=== PATIENT | female | born 1985 | race Caucasian/White ===

== ENCOUNTER 2019-09-06 13:32 | Emergency (ER) | payer SELFPAY | END 2019-09-06 17:51 | disposition left against medical advice (07) | PROVIDERS: Emergency Provider Emergency Medicine | DX: R07.89 Other chest pain (principal); Z53.21 Procedure and treatment not carried out due to patient leaving prior to being seen by health care provider | CPT/HCPCS: 99281 ==

== ENCOUNTER 2019-09-06 20:55 | Emergency (ER) | payer SELFPAY ==
[2019-09-06 21:14] VITALS: BP 147/93; PULSE 92; RESP 16; TEMP 36.4; O2SAT 99; BMI 27.3
--- NOTE | 2019-09-06 21:18 | ED_ITS ---
Entered by Lisa Spring, acting as scribe for Isabelle Gaytan HPI - Chest Pain General: Chief Complaint: Chest Pain Stated Complaint: HEART PROBLEMS Time Seen by Provider: 09/06/19 21:18 Source: patient and RN notes reviewed Mode of arrival: ambulatory Limitations: no limitations History of Present Illness: HPI narrative: 34 yo female presents to ED with co mplaints of sharp cramps in the L side of her chest. She said they have been intermittent since Thursday night (09.04.2019). She said the pain is made worse by movement, deep breaths and the pain is reproducible. MD complaint: chest pain Pertinent past history: other (none) Onset (ago): day(s) (2) Timing of current episode: episodic Prior episodes: No Onset: during exertion Pain location: substernal Pain radiation: left arm (with movement) Severity: moderate Quality: sharp Relieving factors: nothing Exacerbating factors: exertion, inspiration and movement Associated symptoms: Reports no associated symptoms; Deny abdominal pain, diaphoresis, fever(s), nausea, palpitations, syncope or vomiting Treatment prior to arrival: none Risk Factors: Coronary artery disease risk factors: none Thoracic aortic dissection risk factors: none Review of Systems General: Reports: other (negative unless marked) Const: Denies: fever, chills, body aches, fatigue, malaise or diaphoresis Eyes: Denies: change in vision or blurry vision ENMT: Denies: throat pain, painful swallowing, hoarseness, ear pain, ear discharge, Change in hearing or nasal discharge Card: Denies: palpitations, irregular heart rhythm, syncope, pre-syncope, shortness of breath on exertion or shortness of breath when lying down Resp: Denies: productive cough, non-productive cough, wheezing, coughing up blood or chest congestion GI: Denies: abdominal pain, nausea, vomiting, vomiting blood, coffee grounds in vomit, diarrhea, constipation, cramping, blood in stool or black tarry stool : Denies: flank pain, painful urination, urinary frequency, urinary urgency, decreased urine ouput, urinary incontinence or blood in urine Musc: Denies: neck pain, back pain, extremity pain, extremity swelling, joint pain, joint swelling, joint warmth or joint stiffness Skin/Breast: Denies: rash, skin tenderness or yellow skin Neuro: Denies: headache, weakness in extremities, changes in sensation, lack of coordination, difficulty walking, dizziness, vertigo or confusion Endo: Denies: excessive thirst, tired all the time, cold intolerance, excessive sweating, flushing or hot flashes Dean/Lymph: Denies: easy bruising, easy bleeding, petechiae or enlarged lymph nodes All/Imm: Denies: hives, throat swelling, tongue swelling, facial swelling or acute wheezing PFSH ED PFSH: Statuses (acute, chronic, etc) shown below reflect problem list status as previously entered and may not be historically accurate Social History Smoking and tobacco status: current every day smoker Female Reproductive History: Date of last menstrual period: 08/20/19 Physical Exam Const: COMMON NORMALS: no apparent distress, oriented x3, no limitations, healthy appearing and well nourished EXAM LIMITATIONS: no altered mental status GENERAL APPEARANCE: cooperative, well kempt and well developed ORIENTATION/CONSCIOUSNESS: Yes awake HENMT: COMMON NORMALS: normocephalic, head/scalp atraumatic, hearing grossly normal bilaterally, external ears normal, EAC's normal, external nose normal and moist oral mucous membranes HEAD & SCALP: normal to inspection, normocephalic and atraumatic FACE & SINUS: normal facial exam and face symmetric NOSE: external nose normal and nares normal EXTERNAL EAR: Yes external ears normal EXTERNAL AUDITORY CANAL: EAC's normal MOUTH: oral and palatal mucosa normal and tongue normal Eye: COMMON NORMALS: PERRL, EOMs intact bilaterally, conjunctivae normal and no scleral icterus GENERAL EYE: normal appearance of both eyes and normal light reflex CONJUNCTIVA: Yes conjunctivae normal SCLERA: sclerae normal CORNEA: Yes corneas normal PUPIL: Yes PERRL DIRECT OPHTHALMOSCOPY: Yes normal light reflex Neck/C-Spine: COMMON NORMALS: full ROM, no lymphadenopathy, supple, no meningeal signs and no JVD GENERAL: Yes normal visual inspection and Yes trachea midline CERVICAL SPINE: Yes cervical ROM normal Chest: COMMONS NORMALS: inspection of chest normal and palpation of chest normal OTHER: Pain reproducible to palpation of the left upper chest wall. Pain reproducible by deep breaths and with range of motion of the left shoulder and arm. Resp: COMMON NORMALS: normal respiratory effort, no retractions, no use of accessory muscles and clear to auscultation bilaterally EFFORT & INSPECTION: Yes able to speak in complete sentences AUSCULTATION: clear to auscultation bilaterally Cardio: COMMON NORMALS: no JVD, regular rate, regular rhythm, S1 normal heart sound, S2 normal heart sound, no gallops, no clicks, no murmurs and no rub JUGULAR VENOUS DISTENTION: no JVD RATE: regular rate RHYTHM: regular rhythm HEART SOUNDS: S1 normal and S2 normal GI: COMMON NORMALS: soft to palpation, non-tender, no hepatosplenomegaly and no masses INSPECTION: Yes normal to inspection PALPATION: Yes soft and Yes no hepatosplenomegaly : COMMON NORMALS: Yes no CVA tenderness BLADDER/KIDNEY EXAM: Yes no CVA tenderness Back/Pelvis: COMMON NORMALS: no CVA tenderness, thoracic and lumbar spine normal to inspection, no thoracic nor lumbar tenderness and thoraco-lumbar ROM normal Extremity: COMMON NORMALS: normal to inspection, full ROM, normal capillary refill, no joint enlargement, no clubbing, cyanosis or edema and no calf tenderness Neuro: COMMON NORMALS: oriented x3, CN's II-XII intact bilaterally, moves all extremities, no focal motor deficits and no sensory deficits noted MENINGEAL SIGNS: Yes no meningeal signs Psych: COMMON NORMALS: mental status grossly normal, thought process normal, cooperative, affect normal, speech normal and activity/motor behavior normal APPEARANCE: Yes well kempt SPEECH: Yes normal speech THOUGHT PROCESS: normal thought process Skin: COMMON NORMALS: no rashes or lesions noted, skin turgor normal, no jaundice, no petechiae and no mottling GENERAL SKIN EXAM: no rashes or lesions noted and turgor normal Course Vital Signs: Vital signs: Vital Signs Temperature 98.0 F 09/06/19 22:32 Pulse Rate 97 09/06/19 22:32 Respiratory Rate 18 09/06/19 22:32 Blood Pressure 115/89 09/06/19 22:32 Pulse Oximetry 98 09/06/19 22:32 MDM - Chest Pain MDM Narrative: Medical decision making narrative: Patient is relieved to hear her heart looks normal. The patient has a negative d-dimer and is low risk per Wells criteria. EKG otherwise looks okay. I will go ahead and discharge home with strict follow-up instructions. Patient understands she needs to return if her symptoms change or worsen. I see no evidence of acute coronary syndrome. The patient's heart score is a 2. The patient declines to stay for further cardiac testing. I see no evidence of pulmonary embolism, aortic dissection, pneumothorax, or any other acute life-threatening event at this time. Lab Data: Attestation: I reviewed the patient's lab results. Labs: Lab Results 09/06/19 09/06/19 09/06/19 Range/Units 21:42 21:42 21:42 WBC 9.4 (4.0-10.0) 10^3/ uL RBC 5.08 (4.1-5.3) 10^6/u L Hgb 14.6 (11.5-15.3) g/dL Hct 43.8 (37.0-47.0) % MCV 86.2 (81-99) fL MCH 28.7 (28.0-34.0) pg MCHC 33.3 (30.0-36.0) g/dL RDW 13.5 (12.1-15.1) % Plt Count 162 (130-400) 10^3/c mm MPV 12.0 H (7.4-10.4) fL Neut % (Auto) 61.3 % Lymph % (Auto) 28.1 % [place] % (Auto) 8.8 % Eos % (Auto) 1.2 % Baso % (Auto) 0.4 % Neut # (Auto) 5.7 (1.8-7.7) 10^3/u L Lymph # (Auto) 2.6 (0.8-4.8) 10^3/u L [place] # (Auto) 0.8 (0.2-0.9) 10^3/u L Eos # (Auto) 0.1 (0.0-0.8) 10^3/u L Baso # (Auto) 0.0 (0.0-0.1) 10^3/u L Nucleated RBC % (a uto) 0 % Nucleated RBCs # 0.0 /100WBC D-Dimer 0.28 (0-0.59) ug/mIFE U Sodium 135 L (136-145) mmol/L Potassium 3.6 (3.5-5.1) mmol/L Chloride 102 (98-107) mmol/L Carbon Dioxide 22 (22-29) mmol/L Anion Gap 14.6 (5-19) BUN 10 (6-20) mg/dL Creatinine 0.8 (0.5-0.9) mg/dL GFR Calculation 81.2 L (90-130) mL/min Glucose 88 (65-115) mg/dL Lactic Acid (0.5-2.2) mmol/L Calcium 9.6 (8.5-10.5) mg/dL Magnesium 2.1 (1.7-2.3) mg/dL Total Bilirubin 0.2 (0.15-1.2) mg/dL AST 16 (0-32) U/L ALT 13 (0-33) U/L Alkaline Phosphata se 84 (35-105) IU/L Troponin T Baselin e (0-10) ng/mL Total Protein 7.1 (6.6-8.7) g/dL Albumin 3.9 (3.5-5.2) g/dL Globulin 3.2 (1.3-4.6) g/dL Urine Color (Yellow) Urine Appearance (CLEAR) Urine pH (5-7) Ur Specific Gravit y (1.005-1.030) Urine Protein (Negative) Urine Glucose (UA) (Normal) Urine Ketones (Negative) Urine Occult Blood (Negative) Urine Nitrate (Negative) Urine Bilirubin (NEGATIVE) Urine Urobilinogen (Negative) mg/dL Ur Leukocyte Regine ase (Negative) Urine RBC (0-2) /hpf Urine WBC (0-5) /hpf Ur Squamous Epith Cells (0-5) Amorphous Sediment Urine Bacteria (NONE) 09/06/19 09/06/19 09/06/19 Range/Units 21:42 21:42 21:45 WBC (4.0-10.0) 10^3/ uL RBC (4.1-5.3) 10^6/u L Hgb (11.5-15.3) g/dL Hct (37.0-47.0) % MCV (81-99) fL MCH (28.0-34.0) pg MCHC (30.0-36.0) g/dL RDW (12.1-15.1) % Plt Count (130-400) 10^3/c mm MPV (7.4-10.4) fL Neut % (Auto) % Lymph % (Auto) % [place] % (Auto) % Eos % (Auto) % Baso % (Auto) % Neut # (Auto) (1.8-7.7) 10^3/u L Lymph # (Auto) (0.8-4.8) 10^3/u L [place] # (Auto) (0.2-0.9) 10^3/u L Eos # (Auto) (0.0-0.8) 10^3/u L Baso # (Auto) (0.0-0.1) 10^3/u L Nucleated RBC % (a uto) % Nucleated RBCs # /100WBC D-Dimer (0-0.59) ug/mIFE U Sodium (136-145) mmol/L Potassium (3.5-5.1) mmol/L Chloride (98-107) mmol/L Carbon Dioxide (22-29) mmol/L Anion Gap (5-19) BUN (6-20) mg/dL Creatinine (0.5-0.9) mg/dL GFR Calculation (90-130) mL/min Glucose (65-115) mg/dL Lactic Acid 1.0 (0.5-2.2) mmol/L Calcium (8.5-10.5) mg/dL Magnesium (1.7-2.3) mg/dL Total Bilirubin (0.15-1.2) mg/dL AST (0-32) U/L ALT (0-33) U/L Alkaline Phosphata se (35-105) IU/L Troponin T Baselin e 7 (0-10) ng/mL Total Protein (6.6-8.7) g/dL Albumin (3.5-5.2) g/dL Globulin (1.3-4.6) g/dL Urine Color Yellow (Yellow) Urine Appearance Sl cloudy A (CLEAR) Urine pH 7 (5-7) Ur Specific Gravit y 1.010 (1.005-1.030) Urine Protein Neg (Negative) Urine Glucose (UA) Norm (Normal) Urine Ketones Negative (Negative) Urine Occult Blood Neg (Negative) Urine Nitrate Negative (Negative) Urine Bilirubin Neg (NEGATIVE) Urine Urobilinogen Norm (Negative) mg/dL Ur Leukocyte Regine ase Negative (Negative) Urine RBC None (0-2) /hpf Urine WBC 0-4 H (0-5) /hpf Ur Squamous Epith Cells 0-4 H (0-5) Amorphous Sediment 2+ Urine Bacteria Trace (NONE) Imaging Data^: CXR: My impression: No acute cardiopulmonary findings. No pneumothorax. Pneumomediastinum. EKG Data^: EKG 1: Attestation: I personally reviewed and interpreted this EKG as follows: EKG interpretation date: 09/06/19 EKG interpretation time: 21:36 Interpretation: Normal sinus rhythm at 97 beats a minute, no acute ST-T wave changes, normal intervals. Discharge Plan Discharge Patient Disposition: Home, Self-Care Clinical Impression: Atypical chest pain Condition: Stable Prescriptions: New ibuprofen 600 mg tablet 600 mg PO Q6H PRN (Reason: pain) Qty: 30 RF: 0 Discharge Orders: Discharge Order (Routine); Ordered 09/06/19 Ordered By: Isabelle Gaytan Discharge Diet: Advance as tolerated Discharge Activity: Resume usual activity Patient Instructions: Chest Pain (ED) Activity Restrictions/Additional Instructions: Please return to the ER immediately for any of the signs or symptoms listed on your discharge instruction sheets, worsening/changing of your symptoms, you are not getting better as quickly as expected, or for ANY other cause or concerns. Stand Alone Forms: Work/School Release Discharge Date/Time: 09/06/19 23:02 Coding Level of Care Code ED Contour Band Saw Operator Vertical for Chg Fwd The documentation recorded by the Saw crews Valerie R, accurately reflects the service I personally performed and the decisions made by Lukas caraballo Eli N Sep 06, 2019 20:55
[2019-09-06 21:22] VITALS: BP 120/68; PULSE 92; RESP 21; O2SAT 100
--- NOTE | 2019-09-06 21:22 | XR_ITS ---
WS: [id number] CHEST XRAY TECHNIQUE: Portable chest. CLINICAL INFORMATION: cough COMPARISON: FINDINGS: Cholecystectomy clips. Heart: Normal cardiac silhouette. Lungs: Lungs are clear. No consolidation or pleural effusion. Bones: Normal visualized bony structures. XR/XR chest 1V portable [id number] IMPRESSION: Normal chest
--- NOTE | 2019-09-06 21:22 | ECG_ITS ---
Measurements Intervals [place] Rate: 97 P: 60 CO: 159 QRS: 27 QRSD: 83 T: 49 QT: 344 QTc: 438 SINUS RHYTHM LOW QRS VOLTAGE IN PRECORDIAL LEADS [QRS DEFLECTION < 1.0 mV IN CHEST LEADS] Compared to ECG 09/22/2015 18:19:32 Low QRS voltage now present Electronically Signed On 09-07-2019 9:28:19 SERVICES MANAGER by Yosef Lal M.D. [email or web address]
[2019-09-06 21:52] LABS: Basophils % 0.4 %; Eosinophils # 0.1 10^3/uL (0.0-0.8); Eosinophils % 1.2 %; Hematocrit 43.8 % (37.0-47.0); Hemoglobin 14.6 g/dL (11.5-15.3); Lymphocytes # 2.6 10^3/uL (0.8-4.8); Lymphocytes % 28.1 %; Mean Corpuscular HGB Conc 33.3 g/dL (30.0-36.0); Mean Corpuscular Hemoglobin 28.7 pg (28.0-34.0); Mean Corpuscular Volume 86.2 fL (81-99); Monocytes # 0.8 10^3/uL (0.2-0.9); Monocytes % 8.8 %; Neutrophils # 5.7 10^3/uL (1.8-7.7); Neutrophils % 61.3 %; Nucleated Red Blood Cells % 0 %; Platelet Count 162 10^3/cmm (130-400); Red Blood Count 5.08 10^6/uL (4.1-5.3); Red Cell Distribution Width 13.5 % (12.1-15.1); White Blood Count 9.4 10^3/uL (4.0-10.0)
[2019-09-06 22:09] LABS: Alanine Aminotransferase 13 U/L (0-33); Albumin Level 3.9 g/dL (3.5-5.2); Alkaline Phosphatase 84 IU/L (35-105); Anion Gap 14.6 (5-19); Aspartate Amino Transferase 16 U/L (0-32); Blood Urea Nitrogen 10 mg/dL (6-20); Calcium 9.6 mg/dL (8.5-10.5); Carbon Dioxide 22 mmol/L (22-29); Chloride 102 mmol/L (98-107); Globulin 3.2 g/dL (1.3-4.6); Glomerular Filtration Rate 81.2 mL/min (90-130); Magnesium 2.1 mg/dL (1.7-2.3); Potassium 3.6 mmol/L (3.5-5.1); Sodium 135 mmol/L (136-145); Total Bilirubin 0.2 mg/dL (0.15-1.2); Total Protein 7.1 g/dL (6.6-8.7)
[2019-09-06 22:12] LABS: D Dimer 0.28 ug/mIFEU (0-0.59)
[2019-09-06 22:13] LABS: Troponin(5th) Baseline 7 ng/mL (0-10)
[2019-09-06 22:19] LABS: Add Urine Culture? No; Amorphous Sediment Urine 2+; Bacteria Urine TRACE; Bilirubin Urine Neg (NEGATIVE); Blood Urine Neg (Negative); Glucose Urine UA Norm (Normal); Ketones Urine Negative (Negative); Leukocyte Esterase Urine Negative (Negative); Nitrate Urine Negative (Negative); Protein Urine Neg (Negative); Squamous Epithelial Cell Urine 0-4 (0-5); Urine Color Yellow (Yellow); Urobilinogen Urine Norm (Negative); WBC Urine 0-4 /hpf (0-5); pH Urine 7 (5-7)
[2019-09-06 22:32] VITALS: BP 115/89; PULSE 97; RESP 18; TEMP 36.7; O2SAT 98
[2019-09-06] MEDS: acetaminophen 500 mg Tablet 1000 MG PO (22:57)
[2019-09-06] MEDS: ketorolac 30 mg/mL INJ 10 MG IVP (22:58)
[2019-09-07 09:08] LABS: Glucose 88 mg/dL (65-115)
== END 2019-09-06 23:02 | disposition home or self-care (01) ==
PROVIDERS: Emergency Provider Emergency Medicine
DX: R07.89 Other chest pain (principal); F17.200 Nicotine dependence, unspecified, uncomplicated
CPT/HCPCS: 36415; 71045; 80053; 81001; 83605; 83735; 84484; 85025; 85378; 93005; 96374; 96375; 99283; 99284; A9270; J1885

== ENCOUNTER → 2020-02-08 17:57 | Outpatient (BNVA) | payer SELFPAY | PROVIDERS: Visit Provider Nurse Practitioner | DX: R50.9 Fever, unspecified (principal) | CPT/HCPCS: 87635 ==

== ENCOUNTER 2022-09-22 16:30 | Emergency (ER) | payer BC, MEDICAID, SELFPAY ==
[2022-09-22 16:36] VITALS: BP 145/100; PULSE 91; RESP 16; TEMP 36.8; O2SAT 97
[2022-09-22 18:03] LABS: Basophils % 0.3 %; Eosinophils # 0.1 10^3/uL (0.0-0.8); Eosinophils % 0.8 %; Hematocrit 47.6 % (37.0-47.0); Lymphocytes # 2.8 10^3/uL (0.8-4.8); Lymphocytes % 31.7 %; Mean Corpuscular HGB Conc 33.6 g/dL (30.0-36.0); Mean Corpuscular Hemoglobin 29.9 pg (28.0-34.0); Mean Corpuscular Volume 88.8 fl (81-99); Mean Platelet Volume 11.5 fL (7.4-10.4); Monocytes # 0.5 10^3/uL (0.2-0.9); Monocytes % 5.4 %; Neutrophils # 5.32 10^3/uL (1.8-7.7); Neutrophils % 61.5 %; Nucleated Red Blood Cells % 0 %; Platelet Count 173 10^3/cmm (130-400); Red Blood Count 5.36 10^6/uL (4.1-5.3); Red Cell Distribution Width 13.1 % (12.1-15.1); White Blood Count 8.7 10^3/uL (4.0-10.0)
[2022-09-22] MEDS: ketorolac 30 mg/mL INJ IVP (18:03)
--- NOTE | 2022-09-22 18:05 | ED_ITS ---
HPI - Ear Problem General: Chief complaint: Ear Stated complaint: ear infection Time Seen by Provider: 09/22/22 17:19 History of Present Illness: Patient is a 37-year-old female comes to the ED with left ear pain. Patient was seen by PCP Andra in [place] and sent here to the ED for further evaluation. Patient has been having left ear pain for the past 3 months. She has been on multiple rounds of antibiotics and it has not helped. She was recently on Ciprodex and Bactrim and her ear pain did not improve. She is complaining of having 10 out of 10 left ear pain. She timbo cribes it as a constant stabbing pain that radiates behind her left ear. Reports having a fever yesterday. Denies any nausea/vomiting. Associated symptoms: Reports ear or mastoid pain; Denies fever(s), headache(s) or neck pain Review of Systems Const: Denies: fever(s), chills or fatigue Eyes: Denies: change in vision or eye discomfort ENMT: Reports: ear or mastoid pain; Denies: throat pain, odynophagia, nasal discharge or nasal congestion Card: Denies: chest pain, palpitations, edema, swelling of feet/ankles, dyspnea on exertion or orthopnea Resp: Denies: dyspnea, productive cough or non-productive cough GI: Denies: abdominal pain, nausea, vomiting, diarrhea, constipation or hematochezia : Denies: flank pain, dysuria or hematuria Musc: Denies: neck pain, back pain or extremity swelling Skin/Breast: Denies: rash or new lesions Neuro: Denies: headache(s), numbness in extremities or weakness in extremities [facility] PFSH: Medical History (Updated 09/23/22 @ 00:34 by AUGUSTIN Pinto) No pertinent family history Surgical History (Updated 09/23/22 @ 00:34 by AUGUSTIN Pinto) No pertinent past surgical history Social History Smoking and tobacco status: current every day smoker Physical Exam Const: COMMON NORMALS: no acute distress, patient oriented x3, healthy appearing and alert GENERAL APPEARANCE: cooperative and comfortable HENMT: COMMON NORMALS: normocephalic HEAD & SCALP: normocephalic EXTERNAL EAR: Yes mastoid abnormal (Left mastoid tenderness) EXTERNAL AUDITORY CANAL: Abnormal EAC present EAC laterality: left Details: erythema, edema and EAC tenderness TYMPANIC MEMBRANE: TM abnormal TM laterality: left Details: erythematous MOUTH: Normal oral and palatal mucosa present THROAT: posterior oropharynx normal and uvula midline Neck/C-Spine: COMMON NORMALS: supple GENERAL: Yes normal visual inspection Resp: COMMON NORMALS: normal respiratory effort, No retractions, No use of accessory muscles and clear to auscultation bilaterally AUSCULTATION: clear to auscultation bilaterally Cardio: COMMON NORMALS: regular rate, regular rhythm, S1 normal heart sound p resent, S2 normal heart sound present, No gallops present (Cardio), No clicks present (Cardio), No murmurs present (Cardio) and Peripheral pulses 2+ throughout RATE: regular rate RHYTHM: regular rhythm HEART SOUNDS: S1 normal heart sound present and S2 normal heart sound present PERIPHERAL PULSES: Peripheral pulses 2+ throughout GI: COMMON NORMALS: Normal to inspection, nondistended, normoactive bowel sounds present, Soft to palpation, non-tender and no masses PALPATION: Yes Soft to palpation : COMMON NORMALS: Yes no CVA tenderness BLADDER/KIDNEY EXAM: Yes no CVA tenderness Back/Pelvis: COMMON NORMALS: no CVA tenderness Extremity: COMMON NORMALS: normal to inspection Neuro: COMMON NORMALS: patient oriented x3 SENSORIUM/ORIENTATION: Yes alert GAIT: Yes Normal gait present Skin: GENERAL SKIN EXAM: dry skin Course Vital Signs: Vital signs: Vital Signs Temperature 98.1 F 09/22/22 19:22 Pulse Rate 81 09/22/22 19:22 Respiratory Rate 16 09/22/22 19:22 Blood Pressure 112/78 09/22/22 19:22 Pulse Oximetry 97 09/22/22 19:22 Oxygen Delivery Me thod 09/22/22 19:22 MDM - Ear Medical Decision Making Patient is a 37-year-old female comes to the ED with left ear pain. Patient was seen by JEFF Silverman in [place] and sent here to the ED for further evaluation. Patient has been having left ear pain for the past 3 months. She has been on multiple rounds of antibiotics and it has not helped. She was recently on Ciprodex and Bactrim and her ear pain did not improve. She is complaining of having 10 out of 10 left ear pain. She describes it as a constant stabbing pain that radiates behind her left ear. Reports having a fever yesterday. Vitals are stable and patient is afebrile. Exam shows some left EAC swelling, erythema and tenderness and left TM erythema. White blood cell count 8.7 the rest of CBC is unremarkable. Potassium was 3.0 but the rest of CMP was unremarkable. Patient was given a dose of p.o. potassium chloride and IV Rocephin. Patient diagnosed with otitis externa, otitis media and hypokalemia. I placed an order with case management for patient referred to ENT for follow-up. She was discharged home with a prescription for cefdinir and o floxacin eardrops. Return ED precautions given. Patient understood agree with plan Lab Data I reviewed the patient's lab results. 09/22/22 17:58 09/22/22 17:58 Laboratory Results WBC 8.7 10^3/uL (4.0-10.0) 09/22/22 17:58 RBC 5.36 10^6/uL (4.1-5.3) H 09/22/22 17:58 Hgb 16.0 g/dL (11.5-15.3) H 09/22/22 17:58 Hct 47.6 % (37.0-47.0) H 09/22/22 17:58 MCV 88.8 fl (81-99) 09/22/22 17:58 MCH 29.9 pg (28.0-34.0) 09/22/22 17:58 MCHC 33.6 g/dL (30.0-36.0) 09/22/22 17:58 RDW 13.1 % (12.1-15.1) 09/22/22 17:58 Plt Count 173 10^3/cmm (130-400) 09/22/22 17:58 MPV 11.5 fL (7.4-10.4) H 09/22/22 17:58 Neut % (Auto) 61.5 % 09/22/22 17:58 Lymph % (Auto) 31.7 % 09/22/22 17:58 [place] % (Auto) 5.4 % 09/22/22 17:58 Eos % (Auto) 0.8 % 09/22/22 17:58 Baso % (Auto) 0.3 % 09/22/22 17:58 Neut # (Auto) 5.32 10^3/uL (1.8-7.7) 09/22/22 17:58 Lymph # (Auto) 2.8 10^3/uL (0.8-4.8) 09/22/22 17:58 [place] # (Auto) 0.5 10^3/uL (0.2-0.9) 09/22/22 17:58 Eos # (Auto) 0.1 10^3/uL (0.0-0.8) 09/22/22 17:58 Baso # (Auto) 0.0 10^3/uL (0.0-0.1) 09/22/22 17:58 Nucleated RBC % (auto) 0 % 09/22/22 17:58 Nucleated RBCs # 0.0 /100WBC 09/22/22 17:58 Sodium 137 mmol/L (136-145) 09/22/22 17:58 Potassium 3.0 mmol/L (3.5-5.1) L 09/22/22 17:58 Chloride 101 mmol/L (98-107) 09/22/22 17:58 Carbon Dioxide 25 mmol/L (22-29) 09/22/22 17:58 Anion Gap 14.0 (5-19) 09/22/22 17:58 BUN 4 mg/dL (6-20) L 09/22/22 17:58 Creatinine 0.5 mg/dL (0.5-0.9) 09/22/22 17:58 GFR Calculation 137.4 mL/min (90-130) H 09/22/22 17:58 Glucose 83 mg/dL (65-115) 09/22/22 17:58 Calculated Osmolality 280 mOsm/kg (285-295) L 09/22/22 17:58 Calcium 9.2 mg/dL (8.5-10.5) 09/22/22 17:58 Discharge Plan Discharge Patient Disposition: Home Clinical Impression: Hypokalemia Otitis externa Qualifiers: Otitis externa type: unspecified type Chronicity: chronic Laterality: left Qualified Code(s): H60.62 - Unspecified chronic otitis externa, left ear Otitis media Qualifiers: Otitis media type: unspecified Laterality: left Qualified Code(s): H66.92 - Otitis media, unspecified, left ear Condition: Stable Prescriptions: New cefdinir 300 mg capsule 300 mg PO BID 10 Days Qty: 20 0RF ofloxacin 0.3 % drops 10 drp otic (ear) DAILY 7 Days Qty: 10 0RF Discharge Orders: Discharge ED (Routine); Ordered 09/22/22 Ordered By: Wilfredo Vazquez Discharge Diet: Regular Discharge Activity: Increase activity as tolerated Patient Instructions: Otitis Externa - Adult, Ear Infection (ED) Activity Restrictions/Additional Instructions: Follow-up with medical provider as directed. Case management should be contacting you in the next several days set up an appointment with ENT specialist for further evaluation. Take medications as prescribed. Return to the ER or your medical provider if condition worsens. Please read and understand discharge instructions. Thank you for choosing [facility] for your healthcare needs today. Please realize this is an emergency room and that we are providing you with a medical screening exam and this may not be complete and all inclusive of all the testing and or work up that you may need to determine your ailment or severity of your illness. It is very important that you follow up as instructed or that you return to the Emergency Department should you have concerns or if your condition changes or worsens in any way. Coding Level of Care Code ED Flat Breakdown Processor for Kim Vieira
[2022-09-22 18:19] LABS: Blood Urea Nitrogen 4 mg/dL (6-20); Calcium 9.2 mg/dL (8.5-10.5); Carbon Dioxide 25 mmol/L (22-29); Chloride 101 mmol/L (98-107); Glomerular Filtration Rate 137.4 mL/min (90-130); Glucose 83 mg/dL (65-115); Osmolality Calculated 280 mOsm/kg (285-295); Sodium 137 mmol/L (136-145)
[2022-09-22] MEDS: carbamide peroxide Otic 15 mL Btl 5 DROP EAR-LEFT (18:22)
[2022-09-22] MEDS: potassium chloride ER 20 mEq Tablet PO (18:29)
[2022-09-22] MEDS: cefTRIAXone 1,000 MG in sodium chloride 0.9% (plus) 50 ML 100 MG IV (19:02)
[2022-09-22 19:22] VITALS: BP 112/78; PULSE 81; RESP 16; TEMP 36.7; O2SAT 97
--- NOTE | 2022-09-23 13:34 | DCPLANNER ---
Addendum entered by Anjana Tong 10/15/22 08:42: Patient had a follow up appointment scheduled with ENT - patient did attend appointment Addendum entered by Anjana Tong 10/09/22 08:45: Patient has a follow up appointment scheduled for Monday, October 10, 2022 at 9:[address] Melo at ENT. Clinic will call patient with appointment information. Original Note: physical security manager had message to schedule a follow up appointment for patient with ENT. physical security manager sent patients information to the front office staff at ENT. Patients information will be printed and reviewed. Clinic will call patient with appointment information.
== END 2022-09-22 19:33 | disposition home or self-care (01) ==
PROVIDERS: Emergency Provider Physician Assistant
DX: H60.62 Unspecified chronic otitis externa, left ear (principal); H66.92 Otitis media, unspecified, left ear; E87.6 Hypokalemia; F17.210 Nicotine dependence, cigarettes, uncomplicated
CPT/HCPCS: 80048; 85025; 96365; 96375; 99284; J0696; J1885

== ENCOUNTER 2022-10-07 21:32 | Emergency (ER) | payer BC, MEDICAID, SELFPAY ==
[2022-10-07 21:36] VITALS: BP 131/86; PULSE 108; RESP 18; TEMP 36.8; O2SAT 97; BMI 28.3
--- NOTE | 2022-10-07 21:46 | W.ED.EAR ---
HPI - Ear Problem General: Chief complaint: Ear Stated complaint: Left ear pain Time Seen by Provider: 10/07/22 21:45 History of Present Illness: 37-year-old female comes in today for complaints of left ear pain for the last 4 months. Patient has been treated several times for ear infections with antibiotics and steroids. Patient appears nontoxic. Patient appears no acute distress. Patient has no other known chronic medical conditions except clubbing of the fingers. Patient is seeing a sleep lab technologist and restaurant line cook for further evaluation regarding this abnormality. Patient reported a fever last night. Patient appears nontoxic. Patient appears in mild pain. Associated symptoms: Reports ear or mastoid pain and fever(s) Review of Systems Const: Reports: fever(s) ENMT: Reports: ear or mastoid pain Card: Denies: chest pain Resp: Denies: dyspnea GI: Denies: nausea or vomiting Skin/Breast: Denies: rash PFSH ED PFSH: Medical History (Updated 10/07/22 @ 21:58 by SHON Dickey) No pertinent family history Surgical History (Updated 09/23/22 @ 00:34 by AUGUSTIN Pinto) No pertinent past surgical history Social History Smoking and tobacco status: current every day smoker Physical Exam Const: COMMON NORMALS: alert HENMT: COMMON NORMALS: normocephalic and Normal external nose present HEAD & SCALP: normocephalic NOSE: Normal external nose present TYMPANIC MEMBRANE: TM normal on the right and TM abnormal TM laterality: left Details: erythematous MOUTH: Normal oral and palatal mucosa present Neck/C-Spine: COMMON NORMALS: full ROM GENERAL: Yes tender (Anterior cervical and posterior) Resp: COMMON NORMALS: normal respiratory effort Cardio: COMMON NORMALS: regular rate RATE: regular rate Extremity: COMMON NORMALS: normal to inspection Neuro: SENSORIUM/ORIENTATION: Yes alert Skin: COMMON NORMALS: turgor normal GENERAL SKIN EXAM: turgor normal Course Vital Signs: Vital signs: Vital Signs Temperature 98.3 F 10/07/22 21:36 Pulse Rate 108 H 10/07/22 21:36 Respiratory Rate 18 10/07/22 21:36 Blood Pressure 131/86 10/07/22 21:36 Pulse Oximetry 97 10/07/22 21:36 Oxygen Delivery Me thod 10/07/22 21:36 MDM - Ear Medical Decision Making 37-year-old female comes in today for complaints of left ear pain. Patient appears nontoxic. On exam left TM is slightly erythematous but otherwise unremarkable. Patient does have dry wax in both ear canals. Patient is tender to touch to the anterior and posterior cervical area. No cervical lymphadenopathy is noted. Differential diagnosis includes but not limited to otalgia, malingering, otitis media, otitis externa, neuralgia. Exam does not really endorse otitis media however since patient reported a fever last night we will go ahead and treat with Bactrim 1 tablet twice a day for the next 7 days. Patient was also covered with some steroids to help with the pain and inflammation. Patient was written for some tramadol to use 3 times a day as needed for severe pain. Patient was recommended use warm packs and otherwise Tylenol and ibuprofen for pain. Patient has an appointment to see ear nose and throat on Thursday and will keep that appointment. Discharge Plan Discharge Patient Disposition: Home Clinical Impression: Otalgia of left ear Condition: Stable Prescriptions: New sulfamethoxazole-trimethoprim 800-160 mg tablet 1 tab PO BID 7 Days Qty: 14 0RF dexamethasone 4 mg tablet 4 mg PO DAILY Qty: 7 0RF tramadol 50 mg tablet 50 mg PO TID PRN (Reason: pain (scale score 7-10)) Qty: 10 0RF Discharge Orders: Discharge ED (Routine); Ordered 10/07/22 Ordered By: Keanu Aguilar Referrals: Hussein Silverman, LACTATION CONSULTANT [Primary Care Provider] - Discharge Diet: Usual diet Discharge Activity: Increase activity as tolerated Patient Instructions: Earache (ED) Activity Restrictions/Additional Instructions: Home and rest. Drink plenty of fluids. Use medications as directed. Use tramadol only when you not driving or operating equipment that may put yourself or others at risk for injury. Follow-up with ENT specialist for further treatment. Return to ER for worsening symptoms such as high fever greater than 100.4, inability to hold fluids down, or new concerns. Coding Level of Care Code ED Information Systems Architect for Kim Vieira
[2022-10-07] MEDS: TRAMadol 50 mg Tablet PO (22:15)
[2022-10-07] MEDS: sulfamethoxazole-trimeth DS 160-800 mg Tablet 1 TAB PO (22:15)
[2022-10-07] MEDS: dexamethasone 4 mg Tablet 10 MG PO (22:15)
[2022-10-07 22:17] VITALS: PULSE 88; RESP 16; O2SAT 96
== END 2022-10-07 22:18 | disposition home or self-care (01) ==
PROVIDERS: Emergency Provider Nurse Practitioner Family; PCP Nurse Practitioner
DX: H92.02 Otalgia, left ear (principal); F17.210 Nicotine dependence, cigarettes, uncomplicated
CPT/HCPCS: 99283; J8540

== ENCOUNTER 2022-10-21 10:03 | Emergency (ER) | payer BC, MEDICAID, SELFPAY ==
[2022-10-21 10:06] VITALS: BP 148/93; PULSE 104; RESP 18; O2SAT 97
--- NOTE | 2022-10-21 11:28 | ED_ITS ---
HPI - Ear Problem General: Chief complaint: Ear Stated complaint: left ear pain Time Seen by Provider: 10/21/22 10:07 Source: patient Mode of arrival: ambulatory Limitations: no limitations History of Present Illness: Patient is a 37-year-old female presents to ED today with a complaint of left otalgia. Patient states she was recently seen by Dr. Melo who placed her on oral Levofloxacin and Ciprodex for left otitis externa. She states there was some concern that the infection could spread into my bones . Patient is not a diabetic or immunocompromised. She is here secondary to pain stating the pain is radiating into her jaw and neck. MD Complaint: ear pain Location: left ear Duration: constant Severity: severe Relieving factors: nothing Exacerbating factors: nothing Discharge from ear: no Associated symptoms: Reports ear or mastoid pain and external ear pain; Denies fever(s) or headache(s) Treatment prior to arrival: eardrops Review of Systems Const: Denies: fever(s), chills, body aches, fatigue or malaise ENMT: Reports: ear or mastoid pain; Denies: throat pain, odynophagia, mouth pain, swelling of lips/tongue, ear discharge, nasal discharge, nasal congestion, post nasal drip or sinus pain GI: Denies: nausea or vomiting Neuro: Denies: headache(s), dizziness or vertigo [facility] ED PFSH: Medical History No pertinent family history Surgical History No pertinent past surgical history Social History Smoking and tobacco status: current every day smoker Physical Exam Const: COMMON NORMALS: no acute distress, average body habitus, patient oriented x3, no limitations and alert GENERAL APPEARANCE: cooperative ORIENTATION/CONSCIOUSNESS: Yes awake, Yes oriented to person, Yes oriented to place and Yes oriented to time HENMT: COMMON NORMALS: normocephalic, atraumatic and TM's normal bilaterally HEAD & SCALP: normal to inspection, normocephalic and atraumatic FACE & SINUS: normal facial exam GENERAL EAR: other (external auricle TTP down into jaw/neck and posteriorly) EXTERNAL EAR: Yes mastoid abnormal (tender but no redness/swelling) and Yes no periauricular adenopathy EXTERNAL AUDITORY CANAL: Abnormal EAC present (crystalline/honeycomb like debris) TYMPANIC MEMBRANE: TM's normal bilaterally Eye: GENERAL EYE: appearance normal, both eyes and all related structures Neck/C-Spine: COMMON NORMALS: full ROM, no lymphadenopathy and no meningeal signs GENERAL: Yes normal visual inspection Neuro: COMMON NORMALS: patient oriented x3 SENSORIUM/ORIENTATION: Yes alert, Yes oriented to person, Yes oriented to place and Yes oriented to time MENINGEAL SIGNS: Yes no meningeal signs Course Consultations: Consultation #1: Dr. Melo-recommended CT temporal/mastoids w/o contrast; spoke to him again following imaging and he will see patient in office on Thursday at her currently scheduled appointment Vital Signs: Vital signs: Vital Signs Pulse Rate 78 10/21/22 13:01 Respiratory Rate 18 10/21/22 13:01 Blood Pressure 128/71 10/21/22 13:01 Pulse Oximetry 97 10/21/22 10:06 Oxygen Delivery Me thod 10/21/22 10:06 [facility] - Ear Medical Decision Making Patient here with left otalgia. CT imaging does not show any bony involvement but she does have erosive changes along the land of her EAC. Patient is already on oral Levaquin and Ciprodex. I spoke to Dr. Melo who recommended she stay on these and he will see her on Thursday at her currently scheduled appointment. Patient states she has allergies to Toradol and Hydrocodone as well as Acetaminophen. She is requesting Toradol to help with discomfort. Lab Data Radiology Impressions Temporal Bone CT 10/21/22 11:49 IMPRESSION: 1. Irregular septated soft tissue seen in the left external auditory canal and mild thickening soft tissues of the wall. Findings felt to represent cerumen/debris and mild soft tissue inflammatory changes. 2. Mild erosive changes are noted along the anterior, inferior, and posterior wall of the left external auditory canal. Discharge Plan Discharge Patient Disposition: Home Clinical Impression: Acute otitis externa of left ear Condition: Stable Prescriptions: New ketorolac 10 mg tablet 10 mg PO Q8H 4 Days Qty: 12 0RF Discontinued tramadol 50 mg tablet 50 mg PO TID PRN (Reason: pain (scale score 7-10)) Qty: 10 0RF No Action levofloxacin 500 mg tablet 500 mg PO DAILY 15 Days Qty: 15 0RF ciprofloxacin-dexamethasone [Ciprodex] 0.3-0.1 % drops,suspension 4 drp otic (ear) BID 15 Days Qty: 7.5 2RF Rx Instructions: Apply 4 drops into left ear canal twice daily. Let soak for 10 minutes dexamethasone 4 mg tablet 4 mg PO DAILY Qty: 7 0RF Discharge Orders: Discharge ED (Routine); Ordered 10/21/22 Ordered By: Radha Norton Referrals: Hussein Silverman FNP [Primary Care Provider] - Yandel Melo MD [Physician] - Activity Restrictions/Additional Instructions: As we discussed please follow-up with Dr. Melo at your scheduled appointment on Thursday. Coding Level of Care Code ED Golf Course Equipment Operator for Kim Vieira
--- NOTE | 2022-10-21 11:49 | CTR_ITS ---
PROCEDURE INFORMATION: Exam: CT Temporal Bones Without Contrast. Exam date and time: 10/21/2022 12:00 PM Age: 37 years old Clinical indication: Pain; Other: L otalgia/discharge; Additional info: Severe L otalgia/discharge TECHNIQUE: Imaging protocol: Computed tomography of the temporal bones without contrast. Total images: 2 Radiation optimization: All CT scans at this facility use at least one of these dose optimization techniques: automated exposure control; mA and/or kV adjustment per patient size (includes targeted exams where dose is matched to clinical indication); or iterative reconstruction. REPORTING DATA: Count of CT and Cardiac NM exams in prior 12 months: This patient has received 0 known CTs and 0 known cardiac nuclear medicine studies in the 12 months prior to the current study. COMPARISON: No relevant prior studies available. RADIATION DOSE METRICS: Total DLP (mGy-cm): 348.48 FINDINGS: Right inner ear: Normal. Right ossicles and middle ear: Normal. The middle ear ossicles are intact. Right external auditory canal: Normal. Right facial nerve canal: Normal. Right jugular foramen: No jugular dehiscence. Right carotid canal: No aberrant carotid canal. Right mastoid air cells: Normal. No mastoid effusions. Left inner ear: Normal. Left ossicles and middle ear: Normal. The middle ear ossicles are intact. Left external auditory canal: Irregular septated soft tissue seen in the left external auditory canal and mild thickening soft tissues of the wall. Findings felt to represent cerumen/debris and mild soft tissue inflammatory changes. Mild erosive changes are noted along the anterior, inferior, and posterior wall of the left external auditory canal. Left facial nerve canal: Normal. Left jugular foramen: No jugular dehiscence. Left carotid canal: No aberrant carotid canal. Left mastoid air cells: Normal. No mastoid effusions. Paranasal sinuses: Mucous stranding noted in the left maxillary sinus. Soft tissues: See Left external auditory canal finding. CT/CT temporal bone wo con* [id number] IMPRESSION: 1. Irregular septated soft tissue seen in the left external auditory canal and mild thickening soft tissues of the wall. Findings felt to represent cerumen/debris and mild soft tissue inflammatory changes. 2. Mild erosive changes are noted along the anterior, inferior, and posterior wall of the left external auditory canal.
[2022-10-21 13:01] VITALS: BP 128/71; PULSE 78; RESP 18
== END 2022-10-21 13:03 | disposition home or self-care (01) ==
PROVIDERS: Emergency Provider Physician Assistant; PCP Nurse Practitioner
DX: H60.502 Unspecified acute noninfective otitis externa, left ear (principal)
CPT/HCPCS: 70480; 99284

== ENCOUNTER 2022-11-20 09:07 | Day surgery (SDC) | payer BC, MEDICAID, SELFPAY ==
[2022-11-19 10:38] VITALS: BMI 28.3
[2022-11-20] VITALS (16 sets, daily range): BP systolic 92–137; BP diastolic 55–87; PULSE 72–99; RESP 16–20; TEMP 36.1–37; O2SAT 90–99
--- NOTE | 2022-11-20 09:23 | W.PM.OPSUD ---
Surgery/Procedure H&P Update DATE OF PROCEDURE: November 20, 2022 DATE H&P PERFORMED: 10/27/22 H&P UPDATE INFORMATION: I have reviewed H&P completed within last 30 days, I have examined patient prior to procedure and No changes to prior documentation CHANGES TO PREVIOUS DOCUMENTATION: No changes PREOP DIAGNOSIS: Malignant OTITIS externa left ear PRIMARY INDICATION FOR PROCEDURE: Malignant otitis externa left ear PLANNED PROCEDURE: Operation Date: 11/20/22 10:10 Proposed Procedures p [id number] - Excision of necrotic bone - canalplasty of left ear H60.22, h60.502(Left) - Yandel Melo MD s Canaloplasty Ear(Left) - Yandel Melo MD
[2022-11-20] MEDS: sodium chloride 0.9% 1,000 ML 30 ML IV (09:34)
[2022-11-20] MEDS: ondansetron 2 mg/ML SDV 2 mL 4 MG IVP ×3 (09:36→11:51)
[2022-11-20] MEDS: scopolamine 1.5 Patch 1 PATCH TRANSDERMA (09:45)
[2022-11-20] MEDS: levofloxacin-dextrose 5 % 750 MG/150 ML PREMIX 100 MG IV (09:53)
[2022-11-20] MEDS: ciprofloxacin-dexameth Otic Susp 7.5 mL Btl 4 DROP EAR-LEFT (10:35)
[2022-11-20] MEDS: gelatin 12-7 mm Sponge 1 EACH TOPICAL (10:35)
--- NOTE | 2022-11-20 10:35 | SUR.OPER ---
3.4ML 2% LIDOCAINE WITH EPI CARPULE USED IN LEFT EAR
--- NOTE | 2022-11-20 10:37 | P.OP_ITS ---
Operative Report Date of procedure: November 20, 2022 Pre-op diagnosis: Preop Diagnosis Malignant OTITIS externa left ear Post-op diagnosis: Same Post-op findings: Necrotic eroded bone exposed with surrounding granulation tissue. Procedure done: Debridement of necrotic bone from ear canal with canalplasty. Implants: Gelfoam soaked in Ciprodex drops Specimens removed/disposition: Bone and tissue from left ear canal Pathology: Bone and tissue from left ear canal Surgeon: Yandel Melo MD Anesthesia: General and Local Estimated blood loss: 10 mL Complications: No complications encountered Findings: Ear canal from just lateral to the annulus extending laterally to just inside the meatus was exposed necrotic bone. It was deeper near the meatus than near the tympanic membrane. 2 tympanic membrane perforations 1 posterior inferior and 1 anterior inferior. Surrounding granulation tissue around the necrotic bone. No sign of active infection. Brief History: 37-year-old female patient who obviously has had recurrent otitis externa in the past. It was severe enough that it has caused malignant otitis externa changes with necrotic bone covering almost the entire floor of the ear canal exposed wit h surrounding granulation tissue. Patient has inferior anterior and inferior posterior tympanic membrane small perforations. Patient is being brought to the operating room at this time to eradicate the necrotic bone from the ear canal and remove the granulation tissue. Bone will be taken down to healthy bone with a canalplasty and packed with antibiotic and steroid Gelfoam. The procedures risks and complications of been explained in detail to the patient in the office setting. The risks include bleeding infection numbness scarring swelling bruising recurrence need for additional treatment and persistence of perforations. More serious risks associated with anesthesia were also discussed. Informed consent was granted and witnessed. Procedure: Description of procedure: The patient was placed on the operating table in the supine position. Adequate general endotracheal tube anesthesia was obtained. The table was then rotated about 90 degrees. The patient's left ear was exposed. Sign the site was noted. The ear was examined under microscopic visualization through an ear speculum. Intracanalicular and injections with 2% Xylocaine with 1-100,000 epinephrine was accomplished. A total of 3.4 mL of 2% Xylocaine with 1-100,000 epinephrine was utilized. The patient was then prepped and draped in usual fashion. Under direct microscopic visualization, the left ear canal was examined in detail. Probing with around knife was accomplished to determine the full extent of the exposed bone and how deep it went. The necrotic bone was removed with round knife and bone curettes. This was taken down all the way to the healthy bone. The necrotic bone was more superficial medially. There was a crater-like defect with a rim near the annulus medially. This was taken down to being flat so there was no ridge there. Then it was cleaned out laterally where the deepest part was at the lateralmost portion of the bone. This was all debrided down to healthy bone and healthy tissue. All granulation tissue surrounding the area was removed. The area was irrigated with hydrogen peroxide and suctioned clean. Then skin that was raised slightly on the edges was laid back into proper position. Gelfoam soaked in Ciprodex drops was used to pack the canal from the tympanic membrane all the way out to the meatus. Sterile cotton was placed in the fozia bowl with a large sterile Band-Aid covering the cotton and holding it in place. The drapes were then removed and the patient was returned to anesthesia for wake-up and extubation. She tolerated the procedure well had an estimated blood loss of 10 mL and arrived in recovery in stable condition.
--- NOTE | 2022-11-20 11:15 | PC.NURSE ---
Pt reports nausea,feeling like the room is spinning, Zofran 4mg IVP given and Droperidol 0.625mg given per Dr Durán. Will continue to monitor.
[2022-11-20] MEDS: fentaNYL 50 mcg/mL INJ 2mL IVP (11:29)
--- NOTE | 2022-11-20 12:24 | P.ANESASSM_ITS ---
Pre-Anesthetic Assessment Height/Weight: Height 1.55 m Weight 68.039 kg Temp Pulse Resp BP Pulse Ox O2 Del Method O2 Flow Rate 97.0 F L 73 17 114/68 90 Room Air 6 11/20/22 11:43 11/20/22 11:53 11/20/22 11:53 11/20/22 11:53 11/20/22 11:53 11/20/22 11:53 11/20/22 10:48 Preop Diagnosis: Malignant OTITIS externa left ear Operation Date: 11/20/22 10:10 Proposed Procedures p [id number] - Excision of necrotic bone - canalplasty of left ear H60.22, h60.502(Left) - Yandel Melo MD s Canaloplasty Ear(Left) - Yandel Melo MD Familial anesthetic complications: none Was Beta Morris taken within 24 hours: N/A Was Clonidine taken within 24 hours: N/A Last intake: Intake Last Liquid Date 11/19/22 Last Liquid Time 23:00 Last Solid Date 11/19/22 Last Solid Time 12:00 Social Tobacco and No alcohol Exam alert, oriented x 3 and regular rate & rhythm Airway Submandibular: within normal limits Cervical ROM: within normal limits Mallampati: Class II Dentition: false Pulmonary Chronic Obstructive Pulmonary Disease Anesthetic Plan ASA status: 3 Anesthesia: General Medications/Allergies Home Medications Medication Instructions Recorded Confirmed Last Taken Type aspirin 81 mg tablet,delayed 81 mg PO DAILY 11/19/22 11/19/22 11/10/22 History release furosemide 80 mg tablet 80 mg PO BID 11/19/22 11/19/22 11/10/22 History medroxyprogesterone 400 mg/mL 400 mg IM 11/19/22 09/24/22 History intramuscular syringe Allergies Allergy/AdvReac Type Severity Reaction Status Date / Time diphenhydramine Allergy Intermediate ALGY-Anaphy Verified 10/27/22 13:45 [From Benadryl] laxis Iodine and Iodide Containing Allergy Intermediate ALGY-Anaphy Verified 10/27/22 13:45 Produc laxis amoxicillin Allergy Mild ALGY-Hives Verified 10/27/22 13:45 hydrocodone Allergy Mild ALGY-Hives Verified 10/27/22 13:45 tramadol Allergy ALGY-Rash Verified 11/19/22 10:44 Current Medications Generic Name Dose Route Start Last Admin Trade Name Freq PRN Reason Stop Dose Admin Fentanyl 50 mcg 11/20/22 10:39 11/20/22 11:29 Fentanyl 50 Mcg/Ml Inj 2ml IVP 11/21/22 10:39 50 mcg Q5M PRN Administration Pain level 1-5 PACU Phase I Sodium Chloride 1,000 mls @ 30 mls/hr 11/20/22 09:15 11/20/22 12:23 Sodium Chloride 0.9% IV 11/21/22 09:14 Infused .Q24H [place] Infusion Ondansetron HCl 4 mg 11/20/22 09:08 11/20/22 09:36 Ondansetron 2 Mg/Ml Sdv 2 Ml IVP 4 mg ONCE PRN Administration NAUSEA AND VOMITING Ondansetron HCl 4 mg 11/20/22 10:39 11/20/22 11:20 Ondansetron 2 Mg/Ml Sdv 2 Ml IVP 4 mg ONCE PRN Administration Nausea PACU Phase I Ondansetron HCl 4 mg 11/20/22 10:39 11/20/22 11:51 Ondansetron 2 Mg/Ml Sdv 2 Ml IVP 4 mg ONCE PRN Administration Nausea/Vomiting PACU PHASE II [facility] Anesthesia Medical History (Updated 10/27/22 @ 14:05 by Yandel Melo MD) No pertinent family history Surgical History (Updated 11/19/22 @ 10:37 by Birdie [place]) No pertinent past surgical history Social History Smoking and tobacco status: current every day smoker Data Anesthesia Cardiac Studies: No Data to Display
--- NOTE | 2022-11-20 14:32 | ANE.PACU2 ---
Inpatient post-anesthesia follow up: Airway intact: Yes Vital signs: Temperature 97.0 F Pulse Rate 73 Respiratory Rate 17 Blood Pressure 114/68 Pulse Oximetry 90 Oxygen Delivery Me thod Room Air Oxygen Flow Rate 6 Fraction of Inspir ed Oxygen Hydration adequate: Yes Nausea and vomiting: Yes Pain level: 3 Mental status: Baseline
== END 2022-11-20 12:33 | disposition home or self-care (01) ==
PROVIDERS: PCP Nurse Practitioner; Visit Provider Otolaryngology
PROC: (CPT 69310; principal; 2022-11-20 10:00)
PROC: (CPT 69310; 2022-11-20 10:00)
DX: H60.22 Malignant otitis externa, left ear (principal); H60.502 Unspecified acute noninfective otitis externa, left ear; Z79.2 Long term (current) use of antibiotics; J44.9 Chronic obstructive pulmonary disease, unspecified; Z79.82 Long term (current) use of aspirin; F17.200 Nicotine dependence, unspecified, uncomplicated
CPT/HCPCS: 69310; 88307; J1100; J1170; J1790; J1885; J1956; J2250; J2405; J2704; J2710; J3010; J3490; J7030

== ENCOUNTER 2023-01-06 16:13 | Emergency (ER) | payer BC, MEDICAID, SELFPAY ==
[2023-01-06 16:29] VITALS: BP 134/85; PULSE 108; RESP 16; TEMP 36.6; O2SAT 98; BMI 27.9
--- NOTE | 2023-01-06 17:24 | ED_ITS ---
HPI - Extremity Problem General: Chief complaint: Extremity Injury, Lower Stated complaint: possible blood clot sent by PCP Time Seen by Provider: 01/06/23 17:24 History of Present Illness: 37-year-old female comes in today for complaints of calf pain to the right lower leg. Patient reports pain started 2 days ago its aggravated by movement of the knee. No obvious swelling is noted. Patient does have some clubbing of the fingers, is a chronic smoker, has swelling in the lower extremities. Patient denies heart disease. Patient has had surgical removal of her gallbladder. Associated symptoms: Deny fever(s) Review of Systems Const: Denies: fever(s) Resp: Denies: dyspnea GI: Denies: abdominal pain Musc: Reports: extremity pain (Right lower extremity) Skin/Breast: Denies: erythema PFSH ED PFSH: Medical History No pertinent family history Surgical History H/O tubal ligation History of ear surgery HX left ear canaloplasty and removal of necrotic bone History of laparoscopic cholecystectomy No pertinent past surgical history Social History Smoking and tobacco status: current every day smoker Physical Exam Const: COMMON NORMALS: alert HENMT: COMMON NORMALS: normocephalic HEAD & SCALP: normocephalic Neck/C-Spine: COMMON NORMALS: full ROM Resp: COMMON NORMALS: normal respiratory effort and clear to auscultation bilaterally AUSCULTATION: clear to auscultation bilaterally Cardio: COMMON NORMALS: regular rate and regular rhythm RATE: regular rate RHYTHM: regular rhythm GI: COMMON NORMALS: Soft to palpation and non-tender PALPATION: Yes Soft to palpation : COMMON NORMALS: Yes no CVA tenderness BLADDER/KIDNEY EXAM: Yes no CVA tenderness Back/Pelvis: COMMON NORMALS: no CVA tenderness and thoracic and lumbar spine normal to inspection Extremity: COMMON NORMALS: no pedal edema Neuro: SENSORIUM/ORIENTATION: Yes alert Skin: COMMON NORMALS: turgor normal GENERAL SKIN EXAM: turgor normal Course Vital Signs: Vital signs: Vital Signs Temperature 97.8 F 01/06/23 16:29 Pulse Rate 95 01/06/23 17:43 Respiratory Rate 14 01/06/23 17:43 Blood Pressure 121/90 01/06/23 17:43 Pulse Oximetry 97 01/06/23 17:43 Oxygen Delivery Me thod Room Air 01/06/23 17:43 MDM - Extremity (Nontraumatic) Medical Decision Making 37-year-old female referred today from primary care for concerns of possible DVT. Patient's had calf pain for the last 2 days. On exam patient has increased pain with range of motion of the knee. Distal pulses are strong and bounding. No significant edema is noted to the lower extremities. Vital signs are normal. Patient does have significant clubbing to the fingers bilaterally. Differential diagnosis includes but not limited to DVT, Briceño's cyst, osteoarthritis, muscle strain. Ultrasound the lower extremity indicated no DVT and no signs of other abnormality including Briceño's cyst. X-ray of the knee notes mild soft tissue swelling and trace effusion in the knee. Patient appears to have may be some mild degenerative joint disease of the knee. Patient will be started on diclofenac and recommended to follow-up with primary care for further evaluation and treatment. Patient reported understanding agreed to plan. Lab Data Radiology Impressions Venous Duplex 01/06/23 17:25 IMPRESSION: No sonographic evidence of deep vein thrombosis. Knee X-Ray 01/06/23 17:42 IMPRESSION: Mild soft tissue swelling and trace effusion. Discharge Plan Discharge Patient Disposition: Home Clinical Impression: Degenerative joint disease of knee, right Qualifiers: Osteoarthritis type: unspecified Qualified Code(s): M17.11 - Unilateral primary osteoarthritis, right knee Condition: Stable Prescriptions: New diclofenac sodium 75 mg tablet,delayed release (DR/EC) 75 mg PO BID Qty: 30 0RF No Action aspirin 81 mg Tablet,Delayed Release (Dr/Ec) 81 mg PO DAILY furosemide 80 mg tablet 80 mg PO BID medroxyprogesterone 400 mg/mL Syringe 400 mg IM Discharge Orders: Discharge ED (Routine); Ordered 01/06/23 Ordered By: Keanu Aguilar Referrals: Hussein Silverman FNP [Primary Care Provider] - Discharge Diet: Usual diet Discharge Activity: Increase activity as tolerated Patient Instructions: Knee Pain (ED) Activity Restrictions/Additional Instructions: Use crutches until he can bear weight comfortably on the knee. Take diclofenac 75 mg 1 tablet twice a day for pain and inflammation. You may use acetaminophen for further pain relief. Follow-up with primary care for further instructions. Return to ED for new concerns. Coding Level of Care Code ED Wind Development Director for Kim Vieira
--- NOTE | 2023-01-06 17:25 | USR_ITS ---
PROCEDURE INFORMATION: Exam: US Duplex Right Lower Extremity Veins, Limited Exam date and time: 01/06/2023 5:30 PM Age: 37 years old Clinical indication: Pain; Leg, lower; Right; Additional info: R/O dvt, leg edema TECHNIQUE: Imaging protocol: Real-time duplex ultrasound of the right extremity with 2-D vides scale, color Doppler flow and spectral waveform analysis including responses to compression and other maneuvers (when performed) with image documentation. Limited exam was focused on the right lower extremity veins. COMPARISON: CT abdomen pelvis wo con [id number] 04/14/2019 5:01 PM FINDINGS: Right deep veins: Unremarkable. The common femoral, femoral, proximal profunda femoral, popliteal, posterior tibial and peroneal veins are patent without thrombus. Normal Doppler waveforms. Normal compressibility and/or augmentation response. Right superficial veins: Unremarkable. Saphenofemoral junction is patent without thrombus. Soft tissues: Unremarkable. US/[place] [id number] IMPRESSION: No sonographic evidence of deep vein thrombosis.
--- NOTE | 2023-01-06 17:42 | XRR_ITS ---
PROCEDURE INFORMATION: Exam: XR Right Knee Exam date and time: 01/06/2023 5:45 PM Age: 37 years old Clinical indication: Pain; Knee; Right; Additional info: Pain, no injury TECHNIQUE: Imaging protocol: Radiologic exam of the right knee. Views: 3 views. COMPARISON: [place] [id number] 01/06/2023 5:30 PM FINDINGS: Bones/joints: No radiographic evidence of acute fracture or dislocation. Alignment anatomic. Joint spaces preserved. Trace effusion. Soft tissues: Mild soft tissue swelling. XR/XR knee RT 3V* [id number] IMPRESSION: Mild soft tissue swelling and trace effusion.
[2023-01-06 17:43] VITALS: BP 121/90; PULSE 95; RESP 14; O2SAT 97
[2023-01-06] MEDS: ketorolac 30 mg/mL INJ IM (18:20)
== END 2023-01-06 18:32 | disposition home or self-care (01) ==
PROVIDERS: Emergency Provider Nurse Practitioner Family; PCP Nurse Practitioner
DX: M17.11 Unilateral primary osteoarthritis, right knee (principal)
CPT/HCPCS: 73562; 93971; 96372; 99284; J1885

== ENCOUNTER 2023-01-16 22:10 | Emergency (ER) | payer BC, MEDICAID, SELFPAY ==
[2023-01-16 22:18] VITALS: BP 125/82; PULSE 104; RESP 14; TEMP 36.9; O2SAT 97
[2023-01-16 23:47] VITALS: BP 144/92; PULSE 99; O2SAT 93
--- NOTE | 2023-01-17 01:40 | USR_ITS ---
PROCEDURE INFORMATION: Exam: US Duplex Right Lower Extremity Veins, Limited Exam date and time: 01/17/2023 2:06 AM Age: 37 years old Clinical indication: Pain; Leg, lower; Right; Additional info: R leg pain edema TECHNIQUE: Imaging protocol: Real-time duplex ultrasound of the right extremity with 2-D vides scale, color Doppler flow and spectral waveform analysis including responses to compression and other maneuvers (when performed) with image documentation. Limited exam was focused on the right lower extremity veins. COMPARISON: [place] [id number] 01/06/2023 5:30 PM FINDINGS: Evaluated veins include the right common femoral, proximal profunda femoral, proximal/mid/distal superficial femoral, popliteal, posterior tibial, and proximal greater saphenous veins. No visible clot in the included veins. The included veins appear normally compressible. Duplex Doppler evaluation demonstrates flow in the evaluated veins. US/[place] [id number] IMPRESSION: No evidence of acute right lower extremity DVT.
[2023-01-17 01:59] VITALS: RESP 18; O2SAT 100
[2023-01-17] MEDS: HYDROmorphone 1 mg/mL INJ 1 mL IVP (01:59)
[2023-01-17] MEDS: ondansetron 4 MG Tablet PO (02:00)
[2023-01-17] MEDS: dexamethasone 4 mg Tablet 10 MG PO (02:42)
[2023-01-17 02:47] VITALS: BP 112/77; PULSE 94; RESP 18; O2SAT 94
--- NOTE | 2023-01-17 03:37 | ED_ITS ---
HPI - Extremity Problem General: Chief complaint: Extremity Problem,Nontraumatic Stated complaint: right knee injury Time Seen by Provider: 01/17/23 01:02 Source: patient History of Present Illness: 37-year-old female who presents with right lower extremity pain, from the knee down. She notes that she has had some knee swelling, has a history of a Briceño's cyst, and was evaluated for a blood clot last week which was negative. Pain is increased. She was sent by her PCP today for worsening pain despite the above. MD Complaint: extremity pain, extremity swelling, joint swelling and joint pain Onset (ago): hour(s) Pain Consistency: constant Location: right and lower extremity Associated symptoms: Deny chest pain, fever(s) or rash Review of Systems Const: Denies: fever(s) Card: Denies: chest pain Resp: Denies: dyspnea GI: Denies: vomiting Musc: Denies: back pain Skin/Breast: Denies: rash PFSH ED PFSH: Medical History No pertinent family history Surgical History H/O tubal ligation History of ear surgery HX left ear canaloplasty and removal of necrotic bone History of laparoscopic cholecystectomy No pertinent past surgical history Social History Smoking and tobacco status: current every day smoker Physical Exam Const: COMMON NORMALS: no acute distress GENERAL APPEARANCE: cooperative; not ill appearing and not frail appearing HENMT: COMMON NORMALS: normocephalic, atraumatic and Normal external nose present HEAD & SCALP: normocephalic and atraumatic FACE & SINUS: normal facial exam and face symmetric NOSE: Normal external nose present Eye: COMMON NORMALS: Equal, round and reactive pupils present and EOMs intact bilaterally PUPIL: Yes Equal, round and reactive pupils present Neck/C-Spine: GENERAL: Yes trachea midline Chest: CHEST: Yes Symmetrical chest wall rise Resp: COMMON NORMALS: normal respiratory effort, No retractions, No use of accessory muscles and clear to auscultation bilaterally AUSCULTATION: clear to auscultation bilaterally Cardio: COMMON NORMALS: regular rate and regular rhythm RATE: regular rate RHYTHM: regular rhythm GI: COMMON NORMALS: Normal to inspection, nondistended, normoactive bowel sounds present Extremity: NARRATIVE EXTREMITY EXAM: Exam the right lower extremity reveals some nonpitting edema. There is a knee effusion present. There is tenderness diffusely at the knee, as well as the calf. There is mild ankle tenderness as well no warmth of the knee joint. No redness. Neuro: MARAH COMA SCALE: document GCS findings Marah coma scale eye opening: Spontaneous Hardwick coma scale verbal response: Orientated Hardwick coma scale motor response: Obey commands Hardwick coma scale total score: 15 SE NSORY EXAM: Yes extremities (intact) Psych: COMMON NORMALS: speech normal SPEECH: Yes normal speech Skin: COMMON NORMALS: no rashes or lesions noted GENERAL SKIN EXAM: no rashes or lesions noted Course Vital Signs: Vital signs: Vital Signs Temperature 98.4 F 01/16/23 22:18 Pulse Rate 94 01/17/23 02:47 Respiratory Rate 18 01/17/23 02:47 Blood Pressure 112/77 01/17/23 02:47 Pulse Oximetry 94 01/17/23 02:47 Oxygen Delivery Me thod Room Air 01/16/23 23:47 MDM - Extremity (Nontraumatic) Medical Decision Making 37-year-old female with pain to the knee and below. Her calf is quite tender on exam swollen. Her knee joint shows mild effusion, without significant warmth or redness. There is no Briceño's cyst on bedside ultrasound. Ultrasound for DVT was also negative. Pulses are intact distally. She was not discharged with symptomatic treatment. PCP follow-up Discharge Plan Discharge Patient Disposition: Home Clinical Impression: Lower extremity edema, Acute leg pain Condition: Stable Prescriptions: New ketorolac 10 mg tablet 10 mg PO TID PRN (Reason: pain) Qty: 10 0RF Percocet 7.5-325 mg tablet 1 tab PO Q6H PRN (Reason: pain) Qty: 7 0RF Medrol (Brent) 4 mg tablets,dose pack See Rx Instructions .ROUTE .COMPLEX Qty: 21 0RF Rx Instructions: orally per package directions No Action aspirin 81 mg Tablet,Delayed Release (Dr/Ec) 81 mg PO DAILY furosemide 80 mg tablet 80 mg PO BID medroxyprogesterone 400 mg/mL Syringe 400 mg IM diclofenac sodium 75 mg tablet,delayed release (DR/EC) 75 mg PO BID Qty: 30 0RF Discharge Orders: Discharge ED (Routine); Ordered 01/17/23 Ordered By: Eduin Erwin Referrals: Hussein Silverman FNP [Primary Care Provider] - 1-3 days Patient Instructions: Leg Pain (ED), Opioid Safety, Pain Management Activity Restrictions/Additional Instructions: Medication as directed. Steroid will help with swelling of the knee, which can help with the leg pain. See your doctor next week. Return for worsening symptoms or fever. Coding Level of Care Code ED Physician General Practice for Kim Vieira
== END 2023-01-17 02:50 | disposition home or self-care (01) ==
PROVIDERS: Emergency Provider Emergency Medicine; PCP Nurse Practitioner
DX: R60.0 Localized edema (principal); M79.604 Pain in right leg; Z79.82 Long term (current) use of aspirin; F17.210 Nicotine dependence, cigarettes, uncomplicated
CPT/HCPCS: 93971; 96374; 99284; J1170; J8540; Q0162

== ENCOUNTER → 2023-02-02 10:01 | Outpatient (BNVA) | payer BC, MEDICAID, SELFPAY | PROVIDERS: PCP Nurse Practitioner; Referring Provider Physician Assistant; Visit Provider Nurse Practitioner Family | DX: M25.561 Pain in right knee (principal); M79.2 Neuralgia and neuritis, unspecified | CPT/HCPCS: 73562 ==

== ENCOUNTER 2023-05-15 06:00 | Outpatient (CLI) | payer BC, MEDICAID, SELFPAY | END 2023-05-15 06:01 | disposition home or self-care (01) | LOC: SPT 05-22 10:29 | PROVIDERS: PCP Nurse Practitioner; Visit Provider Student in an Organized Health Care Education/Training Program | DX: Z46.89 Encounter for fitting and adjustment of other specified devices (principal); S89.90XD Unspecified injury of unspecified lower leg, subsequent encounter; X58.XXXD Exposure to other specified factors, subsequent encounter | CPT/HCPCS: 97760; L1812 ==

== ENCOUNTER 2023-06-19 15:55 | Outpatient (CLI) | payer BC, MEDICAID, SELFPAY ==
--- NOTE | 2023-06-19 16:00 | MR_ITS ---
WS: [id number] MRI RIGHT KNEE HISTORY: right knee injury,rule out meniscus tear COMPARISON: Radiographs 02/02/2023 Anterior cruciate ligament: Mild increased T2 signal but the fibers are intact. Mucoid degeneration. Posterior cruciate ligament: Intact. Medial collateral ligament: Intact. Posterior lateral corner structures: Small amount of fluid adjacent to the popliteus tendon but the t endon does appear to be intact. Medial menisci: Blunting of the posterior horn medial meniscus at the meniscal root. Abnormal signal extends predominantly along the super articular surface towards the posterior horn. Abnormal shape of the posterior horn. Anterior horn is normal. Lateral meniscus: Intact. Normal signal, size and shape. Extensor mechanism: Distal quadriceps tendon and patellar tendons are intact. Fluid and soft tissue: Small joint effusion. Tiny amount of fluid in the region of Briceño's cyst. Osseous and articular structures: Patellofemoral compartment: Mild narrowing of the patellofemoral joint space. No full-thickness carti adamaris lesions or marrow edema. Medial compartment: Mild narrowing of the medial compartment. Mild thinning of fraying of the cartila ge. No marrow edema. Lateral compartment: Very minimal joint space narrowing. No fractures or marrow edema. IMPRESSION: 1. Abnormal size and signal consistent with a tear involving the posterior horn medial meniscus towar ds the meniscal root. 2. Small joint effusion. 3. Mild degenerative changes in the medial compartment.
== END 2023-06-19 15:56 | disposition home or self-care (01) ==
LOC: RAD 15:55
PROVIDERS: PCP Nurse Practitioner; Visit Provider Student in an Organized Health Care Education/Training Program
DX: S89.90XA Unspecified injury of unspecified lower leg, initial encounter (principal); X58.XXXA Exposure to other specified factors, initial encounter; M25.461 Effusion, right knee; M17.11 Unilateral primary osteoarthritis, right knee
CPT/HCPCS: 73721

== ENCOUNTER 2023-08-26 10:28 | Day surgery (SDC) | payer BC, MEDICAID, SELFPAY ==
[2023-08-26] VITALS (12 sets, daily range): BP systolic 107–134; BP diastolic 71–103; PULSE 17–106; RESP 14–18; TEMP 36.4–36.6; O2SAT 90–99; BMI 27.9
[2023-08-26] MEDS: ketorolac 30 mg/mL INJ IVP (11:13)
[2023-08-26] MEDS: scopolamine 1.5 Patch 1 PATCH TRANSDERMA (11:13)
[2023-08-26] MEDS: acetaminophen 1,000 MG/100 ML PIGGYBACK 400 MG IV (11:14)
[2023-08-26] MEDS: sodium chloride 0.9% 1,000 ML 30 ML IV (11:14)
[2023-08-26 11:21] LABS: OR HCG Qualitative Urine Negative (Negative)
--- NOTE | 2023-08-26 13:04 | P.HP_ITS ---
Same Day Surgery H&P Indication for Procedure/HPI DATE OF PROCEDURE: August 26, 2023 CHIEF COMPLAINT/INDICATIONFOR SURGICAL PROCEDURE: Right knee pain medial meniscus tear PREOP DIAGNOSIS: Right knee medial meniscus tear PLANNED PROCEDURE: Operation Date: 08/26/23 12:05 Proposed Procedures p Knee Arthroscopy diagnostic and surgical/partial medial menisectomy vs repair(Right) - Juanpablo Vazquez DO Medications/Allergies* Home Medications Medication Instructions Recorded Confirmed Type aspirin 81 mg tablet,delayed 81 mg PO DAILY 11/19/22 08/25/23 History release furosemide 80 mg tablet 80 mg PO BID 11/19/22 08/25/23 History medroxyprogesterone 150 mg/mL 150 mg IM DIRECTED 08/26/23 08/26/23 History intramuscular syringe (Depo-Provera) Allergies/Adverse Reactions Allergy/AdvReac Type Severity Reaction Status Date / Time tramadol Allergy Severe ALGY-Rash Verified 08/26/23 10:41 diphenhydramine Allergy Intermediate ALGY-Anaphy Verified 08/26/23 10:41 [From Benadryl] laxis Iodine and Iodide Containing Allergy Intermediate ALGY-Anaphy Verified 08/26/23 10:41 Produc laxis amoxicillin Allergy Mild ALGY-Hives Verified 08/26/23 10:41 hydrocodone Allergy Mild ALGY-Hives Verified 08/26/23 10:41 Current Medications: Generic Name Dose Route Start Last Admin Trade Name Freq PRN Reason Stop Dose Admin Sodium Chloride 1,000 mls @ 30 mls/hr 08/26/23 10:45 08/26/23 11:14 Sodium Chloride 0.9% IV 08/27/23 10:44 30 mls/hr .Q24H [place] Administration Pertinent History/Comorbid Conditions* Medical History (Updated 07/21/23 @ 14:41 by AUGUSTIN Pinto) No pertinent family history Surgical History (Updated 11/28/22 @ 10:13 by Yandel Melo MD) History of laparoscopic cholecystectomy H/O tubal ligation History of ear surgery HX left ear canaloplasty and removal of necrotic bone No pertinent past surgical history Social History Smoking and tobacco/nicotine status: current every day tobacco/nicotine user Pertinent Exam Findings alert, oriented x 3, operative site marked and procedure specific exam findings Right Knee INSPECTION: 1. The limb is normal alignment. 2. Tenderness: [] Most pronounced tenderness to palpation over the medial joint line mild lateral joint line tenderness to palpation 3. Effusion: Mild knee joint effusion present 4. Contralateral limb is in normal alignment and non-tender, Positive Luz Maria's Negative Jose Luis's Stable varus valgus stress Recommendations Surgery/Procedure today Other Plans: Plan to proceed to the OR today for right knee diagnostic and surgical arthroscopy with partial medial meniscectomy versus repair. Patient understands the ins and outs procedure the risk benefits complication alternatives of surgery through shared decision make elects proceed with surgical intervention. All questions answered. Coding Level of Care Code Acute Code for [facility] Fwd
--- NOTE | 2023-08-26 14:20 | ANES.PREANE2 ---
Pre-Anesthetic Assessment Height/Weight: Height 1.55 m Weight 67.132 kg Temp Pulse Resp BP Pulse Ox O2 Del Method 97.6 F 106 H 16 134/103 98 Room Air 08/26/23 10:52 08/26/23 10:52 08/26/23 10:52 08/26/23 10:52 08/26/23 10:52 08/26/23 10:52 Preop Diagnosis: Right knee medial meniscus tear Operation Date: 08/26/23 12:05 Proposed Procedures p Knee Arthroscopy diagnostic and surgical/partial medial menisectomy vs repair(Right) - Juanpablo Daniels, DO Familial anesthetic complications: none Was Beta Morris taken within 24 hours: N/A Was Clonidine taken within 24 hours: N/A Social Tobacco and No alcohol Exam alert, oriented x 3 and regular rate & rhythm Airway Submandibular: within normal limits Cervical ROM: within normal limits Mallampati: Class II Dentition: false Pulmonary Chronic Obstructive Pulmonary Disease Severe clubbing of finger nails Musc/skel Osteoarthritis/DJD Anesthetic Plan ASA status: 3 Anesthesia: General Medications/Allergies Home Medications Medication Instructions Recorded Confirmed Last Taken Type aspirin 81 mg tablet,delayed 81 mg PO DAILY 11/19/22 08/25/23 08/19/23 History release furosemide 80 mg tablet 80 mg PO BID 11/19/22 08/25/23 08/19/23 History Hinged Knee Brace #1 ea 05/15/23 07/21/23 Unknown Rx medroxyprogesterone 150 mg/mL 150 mg IM DIRECTED 08/26/23 08/26/23 07/22/23 History intramuscular syringe (Depo-Provera) Allergies Allergy/AdvReac Type Severity Reaction Status Date / Time tramadol Allergy Severe ALGY-Rash Verified 08/26/23 10:41 diphenhydramine Allergy Intermediate ALGY-Anaphy Verified 08/26/23 10:41 [From Benadryl] laxis Iodine and Iodide Containing Allergy Intermediate ALGY-Anaphy Verified 08/26/23 10:41 Produc laxis amoxicillin Allergy Mild ALGY-Hives Verified 08/26/23 10:41 hydrocodone Allergy Mild ALGY-Hives Verified 08/26/23 10:41 Current Medications Generic Name Dose Route Start Last Admin Trade Name Freq PRN Reason Stop Dose Admin Sodium Chloride 1,000 mls @ 30 mls/hr 08/26/23 10:45 08/26/23 11:14 Sodium Chloride 0.9% IV 08/27/23 10:44 30 mls/hr .Q24H [place] Administration PFSH Anesthesia Medical History No pertinent family history Surgical History History of laparoscopic cholecystectomy H/O tubal ligation History of ear surgery HX left ear canaloplasty and removal of necrotic bone No pertinent past surgical history Social History Smoking and tobacco/nicotine status: current every day tobacco/nicotine user Data Anesthesia Cardiac Studies: No Data to Display
[2023-08-26] MEDS: ceFAZolin 2,000 MG in sodium chloride 0.9% (plus) 50 ML 100 MG IV (14:23)
[2023-08-26] MEDS: clindamycin 900 MG/50 ML PREMIX 100 MG IV (14:51)
[2023-08-26] MEDS: lidocaine-epi 2% 20 mL INJ 40 ML INJECTION (15:00)
--- NOTE | 2023-08-26 15:43 | W.PM.BPON ---
Date of Procedure: [August 26, 2023] Surgeon: [Dr. Vazquez DO] Vacuum Drier Tender(s): [Wilfredo Vazquez PA-C] Procedure(s) performed: [Right knee diagnostic and surgical arthroscopy Medial meniscus repair extensive synovectomy bone marrow stimulation] Findings of the procedure(s): [Right knee medial meniscus tear, synovitis] Estimated blood loss: [5 ml] Specimen(s) removed: [N/A] Post-operative diagnosis: [Right knee medial meniscus tear, synovitis]
--- NOTE | 2023-08-26 15:47 | PM.PACU ---
PACU note Narrative: Patient is a 38-year-old female just underwent a right knee surgical arthroscopy. Pt transferred to PACU in stable condition. Dressing is dry. pt is awake and alert. pt in hinged knee brace. pt can wiggle toes and plantarflex and dorsiflex foot. pt able to perform straight leg raise, Femoral nerve intact. Distal pulses are palpable toes are warm and well-perfused. Cap refill is normal and under 2 seconds. Sensation to foot is intact. Pain is controlled. Exam: awake Disposition: discharged
--- NOTE | 2023-08-26 15:56 | P.OP_ITS ---
Operative Report Date of procedure: August 26, 2023 Surgeon: Juanpablo Vazquez DO Text Transcriber: Wilfredo Vazquez PA-C: PA was necessary for assistance in this case with leg positioning retraction, assistance with instrumentation and meniscal fixation and protection of neurovascular structures as well as assistance in implantation wound closure and dressing application. Procedure: Preoperative diagnosis: Right knee medial meniscus tear post-op diagnosis: Right?knee?medial meniscus tear Right?knee?extensive synovitis Procedure done: Right?knee?diagnostic and surgical arthroscopy medial meniscus repair Right?knee?diagnostic and surgical arthroscopy with extensive synovectomy of the medial lateral and patellofemoral compartments Right?knee?diagnostic and surgical arthroscopy with bone marrow stimulation Surgeon: Juanpablo Vazquez DO Estimated blood loss: 5mL Tourniquet: No tourniquet was used IV fluids: See anesthesia record Complications: None Findings: See operative report narrative Condition: stable Disposition: same day Brief History: Patient is a 38-year-old female with right?knee?pain.? Patient has failed conservative treatment who has been worked up for right??knee?pain in the outpatient setting. MRI findings consistent with tear of the medial meniscus. talked in the office about treatment options patient would like to proceed with a right?knee?diagnostic and surgical arthroscopy with partial medial meniscectomy versus repair patient understand the ins and outs of the procedure the risk benefits complication alternatives to treatment options.? Understanding risk of surgery they agree to proceed with surgical intervention.? Patient understand this may not provide patient with complete symptomatic relief of? pain as patient does have some mild medial compartment degenerative changes on MRI..? Understanding this and patient agree to proceed with surgical intervention all questions answered. Procedure: Patient seen and evaluated in the preoperative holding area.? Consent was reviewed and signed with patient.? Correct extremity was then marked.? Patient seen evaluated Anesthesia Department once cleared for surgery patient was taken back to the operative suite.? Patient was transported onto the OR table in supine position.? All bony prominences well-padded patient was appropriate secured to the bed.? Once appropriately anesthetized a nonsterile tourniquet was applied to the right thigh.? The right lower extremity was then prepped and draped in standard orthopedic fashion.? Final timeout performed.? Patient re ceived appropriate preoperative antibiotics. Patient received local anesthetic of lidocaine with epinephrine into the joint as well as around the portal sites.? No tourniquet was inflated A standard 2 portal vertical incision diagnostic and surgical arthroscopy of the right?knee?was performed in standard fashion.? Small stab incision made in the inferolateral portal introduced trocar and arthroscope into the suprapatellar pouch.? Suprapatellar pouch was subsequently visualized and found to have significant synovitis but no loose bodies.? Patient had noticeable significant inflamed infrapatellar fat pad and thickening hypertrophic within the patellofemoral compartment.? ?The medial gutter was free of loose bodies I then introduced the arthroscope into the medial compartment.? Within the medial compartment I then established my inferior medial working portal utilizing spinal needle outside in technique.? Once established I then visualized our articular cartilage of the medial com partment with a valgus stress.? 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 Next I inspected the meniscus.? With an arthroscopic probe was utilized to visual? all aspects of the meniscus.? Meniscal root was found to be intact.? Meniscus was found to be torn at the body to posterior horn junction. The tear was on the meniscocapsular junction and the red red zone. At this point in time given the instability I could pull this with the probe into the joint and showed inherent hypermobility of the medial meniscus which was nonanatomic and my probe fell within the longitudinal peripheral tear. At this point in time decision was made for meniscal repair given her young age and overall good healthy cartilage. Utilized spinal needle to perform a small controlled fenestration of the MCL to open up the medial space I then subsequently introduced the Arthrex half pipe and subsequently placed 2 meniscal scorpion stitches in horizontal mattress fashion in the posterior horn medial meniscus tear traversing the tear with excellent fixation and excess suture was removed with arthroscopic suture cutter. I then utilized and introduced the arthroscopic probe probed the repair site and this was found to be intact with excellent fixation. Next, I then performed a synovectomy of the medial compartment.? This completed medial compartment work. Next a introduced the arthroscope to the intercondylar notch.? PCL and ACL were intact. patient had significant thickening of the infrapatellar fat pad spanning into the medial and lateral compartments.? I then performed an extensive synovectomy with the arthroscopic shaver of the patellofemoral medial and lateral compartments as well as the intercondylar notch. Advance the?scope?into the retrocruciate space and no loose bodies were found. Next I introduced the arthroscope into the lateral compartment the lateral compartment was found to have grade 0-1chondromalacia.? Lateral meniscus was found to be intact.? The root was intact.? Given the grade 0-1 chondromalacia there is no unstable cartilage pieces to perform chondroplasty.? This completed my work of the lateral compartment and then performed a synovectomy of the lateral compartment.? Next of the arthroscope was placed into the lateral gutter and this was free of loose bodies.? Finally I reintroduced the arthroscope into the patellofemoral compartment.? The patellofemoral was found to have grade 1-2 chondromalacia of the patellofemoral compartment.? At this point I utilized arthroscopic shaver as well as thermal wand to perform extensive synovectomy of the patellofemoral compartment. This completed my work of the patellofemoral space.? At this point In order to aid in meniscal repair healing I then subsequently performed bone marrow stimulation with Diana picks. I cleaned off the anterior border in front of the ACL on the lateral femoral condyle and there was [place] pick subsequently made multiple fenestrations in the intercondylar notch with appropriate bone marrow stimulation. This was then subsequently removed. I then switch my portal sites to the medial working portal.? Completed the rest of my synovectomy and the rest of my examination arthroscopy was normal. All fluid was suctioned from the joint.? ?All instruments were withdrawn.? Portal sites were closed with interrupted nylon suture.? portal sites were then covered with with Xeroform 4 x 4's ABD Curlex and Noel wrap.? Patient was then subsequently awakened from anesthesia and taken to PACU in stable condition. Disposition: Patient taken to PACU in stable condition recovering well.? Will receive appropriate discharge structure as well as pain medication postoperatively as well as? DVT prophylaxis.we will have patient follow-up with us in the office in 2 weeks.? Patient will be toe-touch weightbearing to the right lower extremity. Patel brace subsequently placed and locked in full extension we will follow the meniscal repair protocol. ? Patient understands and agrees with current plan.? All questions answered.
[2023-08-26] MEDS: oxyCODONE-APAP 5-325 mg Tablet 1 TAB PO (16:55)
--- NOTE | 2023-08-26 16:59 | ANE.PACU2 ---
Inpatient post-anesthesia follow up: Airway intact: Yes Vital signs: Temperature 97.9 F Pulse Rate 92 Respiratory Rate 17 Blood Pressure 114/82 Pulse Oximetry 98 Oxygen Delivery Me thod Room Air Oxygen Flow Rate 2 Fraction of Inspir ed Oxygen Hydration adequate: Yes Nausea and vomiting: No Pain level: 2 Mental status: Baseline
== END 2023-08-26 17:25 | disposition home or self-care (01) ==
PROVIDERS: PCP Nurse Practitioner; Visit Provider Student in an Organized Health Care Education/Training Program
PROC: (CPT 29870; principal; 2023-08-26 11:55)
DX: S83.241A Other tear of medial meniscus, current injury, right knee, initial encounter (principal); S83.91XA Sprain of unspecified site of right knee, initial encounter; X58.XXXA Exposure to other specified factors, initial encounter; J44.9 Chronic obstructive pulmonary disease, unspecified; Z79.82 Long term (current) use of aspirin; F17.200 Nicotine dependence, unspecified, uncomplicated
CPT/HCPCS: 29876; 29881; 81025; 84703; C1713; J0131; J0690; J1100; J1885; J2405; J2704; J3010; J3490; J7030

== ENCOUNTER 2024-02-07 09:07 | Emergency (ER) | payer BC, MEDICAID, SELFPAY ==
[2024-02-07 09:12] VITALS: BP 126/77; PULSE 107; RESP 18; TEMP 36.7; O2SAT 100; BMI 28.3
--- NOTE | 2024-02-07 09:27 | ECG_ITS ---
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 Measurements Intervals [place] Rate: 98 P: 53 DC: 144 QRS: 13 QRSD: 86 T: 44 QT: 360 QTc: 461 Interpretive Statements SINUS RHYTHM LOW QRS VOLTAGE IN PRECORDIAL LEADS [QRS DEFLECTION < 1.0 mV IN CHEST LEADS] NONSPECIFIC T-WAVE ABNORMALITY Compared to ECG 09/06/2019 21:36:40 T-wave abnormality now present Electronically Signed On 02-07-2024 19:19:58 CDT by Chevy Gallardo M.D. [id number]
--- NOTE | 2024-02-07 09:35 | XRR_ITS ---
PROCEDURE INFORMATION: Exam: XR Chest Exam date and time: 02/07/2024 9:55 AM Age: 39 years old Clinical indication: Shortness of breath; Patient HX: C/O pcp called her on Thursday with low potassium results (2.9) and to come to the er. PT states that she was out of town and unable to come in. SOB for a week. Just started on inhaler by pcp. Clubbing to fingers/ toes. Intermittent left sided chest pain, intermittent tingling to the left arm. Reports that she is on lasix, but stopped her k+ d/t n/v and then goes out after taking it. Denies either of those things right now. TECHNIQUE: Imaging protocol: Radiologic exam of the chest. Views: 1 view. COMPARISON: CR XR chest 1V portable [id number] 09/06/2019 9:52 PM FINDINGS: Lungs: Unremarkable. No consolidation. Pleural spaces: Unremarkable. No pleural effusion. No pneumothorax. Heart/Mediastinum: Unremarkable. No cardiomegaly. Bones/joints: Unremarkable. Organs: Cholecystectomy clips. XR/XR chest 1V portable [id number] IMPRESSION: No acute findings.
[2024-02-07 09:39] LABS: Basophils % 0.4 %; Eosinophils # 0.1 10^3/uL (0.0-0.8); Eosinophils % 0.8 %; Hematocrit 43.9 % (36-47); Lymphocytes # 2.7 10^3/uL (0.8-4.8); Lymphocytes % 30.3 %; Mean Corpuscular HGB Conc 33.7 g/dL (30-55); Mean Corpuscular Volume 91.8 fl (85-98); Mean Platelet Volume 10.2 fL (7.4-10.4); Monocytes # 0.4 10^3/uL (0.2-0.9); Monocytes % 4.5 %; Neutrophils # 5.74 10^3/uL (1.8-7.7); Neutrophils % 63.7 %; Nucleated Red Blood Cells % 0 %; Platelet Count 203 10^3/cmm (157-399); Red Blood Count 4.78 10^6/uL (3.85-5.65); Red Cell Distribution Width 15.1 % (12.1-15.1); White Blood Count 9.02 10^3/uL (3.29-11.43)
--- NOTE | 2024-02-07 09:53 | W.ED.RECABL ---
HPI - Recheck/Abnormal Lab/Rx General: Chief Complaint: Recheck/Abnormal Lab/Rx Stated Complaint: low potassium, dr referral Time Seen by Provider: 02/07/24 09:32 Source: patient Mode of arrival: ambulatory Limitations: no limitations History of Present Illness: 39-year-old female who states she had some slight dyspnea over the last week she does have a history of wheezing and has been using an inhaler she states that she had seen her PCP on Thursday and had labs drawn for just a lab check states and called her for potassium of 2.9 and she needed to come to the ER. She denies any pain she denies any vomiting she denies any diarrhea. Review of Systems Const: Denies: fever(s), chills, body aches or change in appetite ENMT: Denies: throat pain or dental pain Card: Denies: chest pain Resp: Reports: dyspnea GI: Denies: abdominal pain, nausea, vomiting or diarrhea : Denies: dysuria Musc: Denies: neck pain or back pain Skin/Breast: Denies: rash Neuro: Denies: headache(s) PFSH ED PFSH: Medical History No pertinent family history Surgical History History of laparoscopic cholecystectomy H/O tubal ligation History of ear surgery HX left ear canaloplasty and removal of necrotic bone No pertinent past surgical history Social History Smoking and tobacco/nicotine status: current every day tobacco/nicotine user Alcohol intake: never Physical Exam Const: COMMON NORMALS: no acute distress, patient oriented x3 and healthy appearing HENMT: COMMON NORMALS: normocephalic and atraumatic HEAD & SCALP: normocephalic and atraumatic Neck/C-Spine: COMMON NORMALS: full ROM and supple Chest: COMMONS NORMALS: normal inspection of the chest Resp: COMMON NORMALS: normal respiratory effort, No retractions, No use of accessory muscles and clear to auscultation bilaterally AUSCULTATION: clear to auscultation bilaterally Cardio: COMMON NORMALS: regular rate, regular rhythm and No murmurs present (Cardio) RATE: regular rate RHYTHM: regular rhythm Extremity: COMMON NORMALS: normal to inspection and full ROM Neuro: COMMON NORMALS: patient oriented x3, moves all extremities and no focal motor deficits Psych: COMMON NORMALS: mental status grossly normal, Normal thought process present and cooperative THOUGHT PROCESS: Normal thought process present Skin: COMMON NORMALS: no rashes or lesions noted and no wounds GENERAL SKIN EXAM: no rashes or lesions noted Course Vital Signs: Vital signs: Vital Signs Temperature 98.0 F 02/07/24 09:12 Pulse Rate 107 H 02/07/24 09:12 Respiratory Rate 18 02/07/24 09:12 Blood Pressure 126/77 02/07/24 09:12 Pulse Oximetry 100 02/07/24 09:12 Oxygen Delivery Me thod Room Air 02/07/24 09:12 MDM - Recheck/Abnormal Lab/Rx Medical Decision Making Patient presents here with hypokalemia potassium is 2.8 blood work here is otherwise normal D-dimer was negative EKG x-ray here are normal will replace her potassium she has appoint with her PCP on Thursday inform her she has her potassium rechecked and her mag level here is normal Medical Records I reviewed the patient's medical records. Lab Data I reviewed the patient's lab results. 02/07/24 09:32 02/07/24 09:32 Radiology Impressions Chest X-Ray 02/07/24 09:35 IMPRESSION: No acute findings. Laboratory Results WBC 9.02 10^3/uL (3.29-11.43) 02/07/24 09:32 RBC 4.78 10^6/uL (3.85-5.65) 02/07/24 09:32 Hgb 14.80 g/dL (11.27-16.99) 02/07/24 09:32 Hct 43.9 % (36-47) 02/07/24 09:32 MCV 91.8 fl (85-98) 02/07/24 09:32 MCH 31.0 pg (27-33) 02/07/24 09:32 MCHC 33.7 g/dL (30-55) 02/07/24 09:32 RDW 15.1 % (12.1-15.1) 02/07/24 09:32 Plt Count 203 10^3/cmm (157-399) 02/07/24 09:32 MPV 10.2 fL (7.4-10.4) 02/07/24 09:32 Neut % (Auto) 63.7 % 02/07/24 09:32 Lymph % (Auto) 30.3 % 02/07/24 09:32 [place] % (Auto) 4.5 % 02/07/24 09:32 Eos % (Auto) 0.8 % 02/07/24 09:32 Baso % (Auto) 0.4 % 02/07/24 09:32 Neut # (Auto) 5.74 10^3/uL (1.8-7.7) 02/07/24 09:32 Lymph # (Auto) 2.7 10^3/uL (0.8-4.8) 02/07/24 09:32 [place] # (Auto) 0.4 10^3/uL (0.2-0.9) 02/07/24 09:32 Eos # (Auto) 0.1 10^3/uL (0.0-0.8) 02/07/24 09:32 Baso # (Auto) 0.0 10^3/uL (0.0-0.1) 02/07/24 09:32 Nucleated RBC % (auto) 0 % 02/07/24 09:32 Nucleated RBCs # 0.0 /100WBC 02/07/24 09:32 D-Dimer 0.34 ug/mLFEU (0-0.59) 02/07/24 09:32 Sodium 134 mmol/L (136-145) L 02/07/24 09:32 Potassium 2.8 mmol/L (3.5-5.1) L* 02/07/24 09:32 Chloride 99 mmol/L (98-107) 02/07/24 09:32 Carbon Dioxide 23 mmol/L (22-29) 02/07/24 09:32 Anion Gap 14.8 (5-19) 02/07/24 09:32 BUN 6 mg/dL (6-20) 02/07/24 09:32 Creatinine 0.6 mg/dL (0.5-0.9) 02/07/24 09:32 GFR Calculation 110.2 mL/min (90-130) 02/07/24 09:32 Glucose 143 mg/dL (65-115) H 02/07/24 09:32 Calculated Osmolality 278 mOsm/kg (285-295) L 02/07/24 09:32 Calcium 8.9 mg/dL (8.5-10.5) 02/07/24 09:32 Magnesium 2.2 mg/dL (1.7-2.3) 02/07/24 09:32 Total Bilirubin 0.4 mg/dL (0.15-1.2) 02/07/24 09:32 AST 11 U/L (0-32) 02/07/24 09:32 ALT 9 U/L (0-33) 02/07/24 09:32 Alkaline Phosphatase 88 U/L (35-105) 02/07/24 09:32 Troponin T Baseline < 6 ng/L (0-10) 02/07/24 09:32 Total Protein 7.1 g/dL (6.6-8.7) 02/07/24 09:32 Albumin 3.7 g/dL (3.5-5.2) 02/07/24 09:32 Globulin 3.4 g/dL (1.3-4.6) 02/07/24 09:32 All radiology interpretation(s) finalized by discharge Discharge Plan Discharge Patient Disposition: Home Clinical Impression: Hypokalemia Condition: Stable Prescriptions: New potassium chloride 40 mEq/15 mL liquid 40 meq PO BID 5 Days Qty: 150 0RF No Action naproxen sodium [Aleve] 220 mg tablet 220 mg PO BID PRN prednisone 20 mg tablet 20 mg PO DAILY Qty: 15 0RF Rx Instructions: 60 mg X 3 days 40 mg X 2 days 20 mg X 2 days (DME) Hinged Knee Brace See Rx Instructions .Route .MEDSUPPLY Qty: 1 0RF Rx Instructions: As directed ropinirole 0.25 mg tablet 0.25 mg PO TID urea 40 % cream 1 applic topical DAILY Qty: 28 3RF aspirin 81 mg Tablet,Delayed Release (Dr/Ec) 81 mg PO DAILY furosemide 80 mg tablet 80 mg PO BID Depo-Provera 150 mg/mL Syringe 150 mg IM DIRECTED Discharge Orders: Discharge ED (Routine); Ordered 02/07/24 Ordered By: Meenakshi Syed Referrals: Hussein Silverman, DUMP[employer]ER [Primary Care Provider] - 4-7 days Discharge Diet: Advance as tolerated Discharge Activity: Resume usual activity Patient Instructions: Hypokalemia (ED) Coding Level of Care Code ED Cartography Supervisor for Kim Vieira
[2024-02-07 09:57] LABS: Alanine Aminotransferase 9 U/L (0-33); Albumin Level 3.7 g/dL (3.5-5.2); Alkaline Phosphatase 88 U/L (35-105); Aspartate Amino Transferase 11 U/L (0-32); Blood Urea Nitrogen 6 mg/dL (6-20); Calcium 8.9 mg/dL (8.5-10.5); Carbon Dioxide 23 mmol/L (22-29); Chloride 99 mmol/L (98-107); Globulin 3.4 g/dL (1.3-4.6); Glomerular Filtration Rate 110.2 mL/min (90-130); Glucose 143 mg/dL (65-115); Magnesium 2.2 mg/dL (1.7-2.3); Osmolality Calculated 278 mOsm/kg (285-295); Sodium 134 mmol/L (136-145); Total Bilirubin 0.4 mg/dL (0.15-1.2); Total Protein 7.1 g/dL (6.6-8.7)
[2024-02-07 09:59] LABS: Troponin(5th) Baseline < 6 ng/L (0-10)
[2024-02-07 10:04] LABS: Anion Gap 14.8 (5-19); Potassium 2.8 mmol/L (3.5-5.1)
[2024-02-07] MEDS: potassium chloride ER 20 mEq Tablet 80 MEQ PO (10:12)
[2024-02-07] MEDS: ondansetron 2 mg/ML SDV 2 mL 4 MG IVP (10:16)
[2024-02-07 10:22] LABS: D Dimer 0.34 ug/mLFEU (0-0.59)
== END 2024-02-07 10:53 | disposition home or self-care (01) ==
PROVIDERS: Emergency Provider Emergency Medicine; PCP Nurse Practitioner
DX: E87.6 Hypokalemia (principal); Z79.82 Long term (current) use of aspirin; Z72.0 Tobacco use
CPT/HCPCS: 36415; 71045; 80053; 83735; 84484; 85025; 85378; 93005; 96374; 99285; J2405

== ENCOUNTER 2024-04-08 09:53 | Outpatient (CLI) | payer BC, MEDICAID, SELFPAY ==
--- NOTE | 2024-04-08 10:00 | CT_ITS ---
WS: [id number] CT CHEST CT-HIGH RESOLUTION, NONCONTRAST. HISTORY: Interstitial lung disease. Technique: High-resolution chest CT is performed in inspiration, expiration, supine and prone positio klaus. All CT scans at [facility] use at least one of these dose optimization techniques: automated exposure control; mA and/or kV adjustment per patient size (includes targeted exams where dose is mat ched to clinical indication); or iterative reconstruction. DLP: 1036.00 mGy.cm COMPARISON: Chest radiograph 02/07/2024 Findings: Mild pulmonary hyperexpansion. Very slight hazy attenuation throughout both lungs is diffus e. No mosaic attenuation or air trapping identified. No pulmonary mass, nodule or pneumonia. Very min imal peripheral interstitial thickening. There is no honeycombing or bronchiectasis. No pericardial or pleural effusions. No mediastinal or hilar lymphadenopathy. Small hiatal hernia. Prior cholecystectomy. No adrenal mass. Normal chest wall and lower neck. CT/CT chest wo con [id number] Impression: 1. No pneumonia. 2. No bronchiectasis or honeycombing. 3. Very slight hazy attenuation and peripheral interstitial prominence. 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 4. No adenopathy. 5. Prior cholecystectomy.
--- NOTE | 2024-04-08 13:30 | USCV_ITS ---
Jasson Sabrina Age: 39 Gender: F : 1985 Exam Date: 04/08/2024 14:06 Ordering Phys: Megan Naranjo MD Technologist: KULWINDER [place] [facility] [place]: SHORTNES OF BREATH BP: 133 / 91 HR: 80 Rhythm: Sinus Technical Quality: Suboptimal MEASUREMENTS (Male / Female) Normal Values 2D ECHO LV Diastolic Diameter PLAX 4.3 cm 4.2 - 5.9 / 3.9 - 5.3 cm IVS Diastolic Thickness 0.8 cm 0.6 - 1.0 / 0.6 - 0.9 cm IVS Systolic Thickness 1.3 cm LVPW Diastolic Thickness 1.6 cm 0.6 - 1.0 / 0.6 - 0.9 cm LVPW Systolic Thickness 2.0 cm LVOT Diameter 2.0 cm LV Ejection Fraction 2D Teich 62.0 % LV Ejection Fraction MOD 4C 67.6 % LV Ejection Fraction MOD 2C 72.2 % LV Ejection Fraction 2C AL 72.7 % LA Diameter 2.7 cm RA Systolic Volume 4C AL 19.4 ml RA Systolic Volume 4C MOD 18.0 ml LA Sys Volume AL 20.4 cm cubed LA Sys Volume Index AL 11.3 cm cubed/m squared Aorta at Sinotubular Diameter 2.3 cm IVC Diameter 1.6 cm M-MODE LA Ao Ratio MM 1.0 AV Cusp Separation MM 1.5 cm DOPPLER AV Peak Velocity 94.0 cm/s LVOT Peak Velocity 86.0 cm/s AV Area Cont Eq vti 3.1 cm squared AV Area Cont Eq pk 2.9 cm squared MV Peak Velocity 92.0 cm/s MV Area PHT 3.8 cm squared Mitral E to A Ratio 1.4 TV Peak E Velocity 58.0 cm/s Right Atrial Pressure 3.0 mmHg PV Peak Velocity 86.0 cm/s RV Ejection Time 0.4 s FINDINGS Left Ventricle Normal left ventricular size, systolic function, estimated ejection fraction 60% no regional wall motion abnormalities. Normal left ventricular wall thickness. Normal diastolic filling pattern. Right Ventricle The right ventricle is normal in size and function. Right Atrium The right atrium is normal in size. Left Atrium The left atrium is normal in size. Mitral Valve Structurally normal mitral valve without significant stenosis or prolapse. There is no mitral regurgitation. Aortic Valve Structurally normal aortic valve without significant sclerosis or stenosis. There is no aortic regurgitation. Tricuspid Valve Structurally normal tricuspid valve without significant stenosis or regurgitation. Pulmonary artery systolic pressure is normal. Pulmonic Valve Structurally normal pulmonic valve without significant stenosis. There is no pulmonic regurgitation. Pericardium Normal pericardium without effusion. Aorta Normal ascending aorta dimension. IVC The inferior vena cava appears normal. CONCLUSIONS Normal left ventricular size, systolic function, estimated ejection fraction 60% no regional wall motion abnormalities. Normal left ventricular wall thickness. Normal diastolic filling pattern. No significant chamber abnormalities. There is no pericardial effusion. Right atrial pressure is around 5 mm of mercury. Emilie Vizcaino MD (Electronically Signed) Final Date: 08 April 2024 17:38 S
== END 2024-04-08 09:54 | disposition home or self-care (01) ==
PROVIDERS: PCP Nurse Practitioner; Visit Provider Internal Medicine Critical Care Medicine
DX: R94.2 Abnormal results of pulmonary function studies (principal); J43.2 Centrilobular emphysema; T58.91XA Toxic effect of carbon monoxide from unspecified source, accidental (unintentional), initial encounter; R91.8 Other nonspecific abnormal finding of lung field; Z90.49 Acquired absence of other specified parts of digestive tract; Z72.0 Tobacco use
CPT/HCPCS: 71250; 93306

== ENCOUNTER 2024-04-20 13:57 | Outpatient (CLI) | payer BC, MEDICAID, SELFPAY ==
[2024-04-20] MEDS: albuterol 2.5 mg/3 mL Neb INHALATION (14:30)
[2024-04-20 14:32] VITALS: PULSE 119; RESP 28; O2SAT 99
[2024-04-20 14:36] LABS: Alveolar-Arterial Oxygen Gradi 0.1 mmHg (5-10); Arterial Blood Gas Hematocrit 47.1 % (37-47); Blood Gas Allen Test Pos; Blood Gas Operator Identificat BROMA; Blood Gas Sample Site Radial, right; Blood Gas Sample Type Arterial; Carboxyhemoglobin 8.9 %THgb (0.4-20.1); HGB O2 Sat 90.7 % (95-100); Oxygen Device ROOM AIR; Total Hemoglobin 15.4 g/dL (12-16)
== END 2024-04-20 13:58 | disposition home or self-care (01) ==
PROVIDERS: PCP Nurse Practitioner; Visit Provider Internal Medicine Critical Care Medicine
DX: R06.09 Other forms of dyspnea (principal); J43.2 Centrilobular emphysema; R94.2 Abnormal results of pulmonary function studies; T58.91XA Toxic effect of carbon monoxide from unspecified source, accidental (unintentional), initial encounter; F17.200 Nicotine dependence, unspecified, uncomplicated; X58.XXXA Exposure to other specified factors, initial encounter
CPT/HCPCS: 36600; 82810; 94060; 94726; 94729; J7613

== ENCOUNTER → 2024-06-16 14:18 | Outpatient (BNVA) | payer BC, MEDICAID, SELFPAY | PROVIDERS: PCP Nurse Practitioner; Visit Provider Physician Assistant | DX: M25.561 Pain in right knee (principal); Z98.890 Other specified postprocedural states | CPT/HCPCS: 73560; 73565 ==

== ENCOUNTER → 2024-07-04 15:47 | Outpatient (BNVA) | payer BC, MEDICAID, SELFPAY | PROVIDERS: PCP Nurse Practitioner; Visit Provider Internal Medicine Cardiovascular Disease | DX: R07.9 Chest pain, unspecified (principal); R06.02 Shortness of breath; I47.11 Inappropriate sinus tachycardia, so stated; R94.31 Abnormal electrocardiogram [ECG] [EKG] | CPT/HCPCS: 93005 ==

== ENCOUNTER 2024-07-06 20:00 | Outpatient (CLI) | payer BC, MEDICAID, SELFPAY | END 2024-07-06 20:01 | disposition home or self-care (01) | LOC: SLEEP 23:23 | PROVIDERS: PCP Nurse Practitioner; Visit Provider Internal Medicine Critical Care Medicine | DX: G47.33 Obstructive sleep apnea (adult) (pediatric) (principal); R94.2 Abnormal results of pulmonary function studies; R09.02 Hypoxemia | CPT/HCPCS: 95810 ==

== ENCOUNTER 2024-07-11 08:01 | Outpatient (CLI) | payer BC, MEDICAID, SELFPAY ==
[2024-07-11 08:29] VITALS: PULSE 127; RESP 18; O2SAT 97
[2024-07-11] MEDS: albuterol 2.5 mg/3 mL Neb INHALATION (08:29)
[2024-07-11 08:34] VITALS: PULSE 125
== END 2024-07-11 08:02 | disposition home or self-care (01) ==
LOC: RT 08:02
PROVIDERS: PCP Nurse Practitioner; Visit Provider Emergency Medicine
DX: R06.00 Dyspnea, unspecified (principal); R94.2 Abnormal results of pulmonary function studies
CPT/HCPCS: 94060; 94618; 94729; J7613

== ENCOUNTER 2024-07-11 09:04 | Outpatient (CLI) | payer BC, MEDICAID, SELFPAY ==
[2024-07-11 10:36] LABS: Anion Gap 18.5 (5-19); Blood Urea Nitrogen 4 mg/dL (6-20); Calcium 9.3 mg/dL (8.5-10.5); Carbon Dioxide 22 mmol/L (22-29); Chloride 98 mmol/L (98-107); Glomerular Filtration Rate 110.2 mL/min (90-130); Glucose 117 mg/dL (65-115); NT Pro B Type Natriuretic Pept < 36 pg/mL (0-125); Osmolality Calculated 280 mOsm/kg (285-295); Sodium 136 mmol/L (136-145)
[2024-07-11 13:29] LABS: Potassium 2.5 mmol/L (3.5-5.1)
== END 2024-07-11 09:05 | disposition home or self-care (01) ==
LOC: LAB 09:05
PROVIDERS: PCP Nurse Practitioner; Visit Provider Internal Medicine Cardiovascular Disease
DX: R06.02 Shortness of breath (principal)
CPT/HCPCS: 36415; 80048; 83880

== ENCOUNTER 2024-08-23 20:38 | Emergency (ER) | payer BC, MEDICAID, SELFPAY ==
--- NOTE | 2024-08-23 20:42 | XRR_ITS ---
PROCEDURE INFORMATION: Exam: XR Right Knee Exam date and time: 08/23/2024 9:00 PM Age: 39 years old Clinical indication: Pain; Right; Prior surgery; Surgery date: 6+ months; Surgery type: RT knee; Additional info: RT knee pain for 7 mos TECHNIQUE: Imaging protocol: Radiologic exam of the right knee. Views: 3 views. COMPARISON: CR XR knees AP WB w RT lmt ORTH 06/16/2024 2:23 PM FINDINGS: Bones/joints: Normal. Soft tissues: Normal. XR/XR knee RT 3V* [id number] IMPRESSION: No acute findings.
[2024-08-23 20:54] VITALS: BP 127/86; PULSE 116; RESP 18; TEMP 36.8; O2SAT 100; BMI 28.3
[2024-08-23 21:11] VITALS: BP 115/86; PULSE 112; O2SAT 95
--- NOTE | 2024-08-23 21:24 | W.ED.EXTPRO ---
HPI - Extremity Problem General: Chief complaint: Extremity Injury, Lower Stated complaint: right knee pain Time Seen by Provider: 08/23/24 20:52 Source: patient Mode of arrival: ambulatory Limitations: no limitations History of Present Illness: Patient is a 39-year-old female reports to the emergency department complaining of right knee pain chronically. States that last August she had a procedure for meniscus repair with Dr. Vazquez. States that since last summer she has intermittently had pain with this knee, however for the past week or so it has been worse. States that now she cannot bend it or straighten it. Pain reported primarily to the lateral aspect, history of medial meniscus repair. No calf pain, distal neurovascular symptoms, or coolness to extremity. States she has not taken anything for pain, is requesting something for pain at this time. MD Complaint: joint pain Onset (ago): month(s) Pain Consistency: intermittent Location: right Radiation: distal Exacerbating factors: range of motion and weight bearing Associated symptoms: Deny chest pain, fever(s) or rash Related Data Home Medications Medication Instructions Recorded Confirmed aspirin 81 mg tablet,delayed 81 mg PO DAILY 11/19/22 06/16/24 release furosemide 80 mg tablet 80 mg PO BID 11/19/22 06/16/24 medroxyprogesterone 150 mg/mL 150 mg IM DIRECTED 08/26/23 06/16/24 intramuscular syringe (Depo-Provera) naproxen sodium 220 mg tablet 220 mg PO BID PRN 09/29/23 06/16/24 (Aleve) ropinirole 0.25 mg tablet 0.25 mg PO TID 01/26/24 06/16/24 budesonide-formoterol HFA 160 2 puff inhalation BID 03/30/24 06/16/24 mcg-4.5 mcg/actuation aerosol inhaler (Symbicort) Previous Rx's Medication Instructions Recorded Hinged Knee Brace #1 ea 05/15/23 urea 40 % topical cream 1 applic topical DAILY #28 grams 01/26/24 ondansetron 4 mg disintegrating 4 mg PO Q6H PRN nausea and 02/07/24 tablet vomiting #14 tabs nicotine See Rx Instructions transdermal 03/30/24 21mg/24hr-14mg/24hr-7mg/24hr daily .COMPLEX #56 patches transderm patches,sequentl potassium chloride 20 mEq 20 meq PO BID #60 tabs 07/11/24 tablet,extended release potassium chloride 20 mEq 20 meq PO QID #8 tabs 07/11/24 tablet,extended release Allergies Allergy/AdvReac Type Severity Reaction Status Date / Time tramadol Allergy Severe ALGY-Rash Verified 08/23/24 20:57 diphenhydramine Allergy Intermediate ALGY-Anaphy Verified 08/23/24 20:57 [From Benadryl] laxis Iodine and Iodide Containing Allergy Intermediate ALGY-Anaphy Verified 08/23/24 20:57 Produc laxis amoxicillin Allergy Mild ALGY-Hives Verified 08/23/24 20:57 hydrocodone Allergy Mild ALGY-Hives Verified 08/23/24 20:57 prednisone Allergy ADR-Itching Verified 08/23/24 20:57 Review of Systems General: Reports: 10 or more systems reviewed and unremarkable except in HPI and below Const: Denies: fever(s) or chills Card: Denies: chest pain Resp: Denies: dyspnea or productive cough GI: Denies: abdominal pain, nausea, vomiting or diarrhea : Denies: flank pain Musc: Reports: joint pain (right knee) and limited range of motion; Denies: neck pain, back pain, extremity pain, extremity swelling, joint swelling, joint redness, joint warmth or muscle weakness Skin/Breast: Denies: rash Neuro: Denies: headache(s), numbness in extremities or weakness in extremities PFSH ED PFSH: Medical History No pertinent family history Surgical History History of laparoscopic cholecystectomy H/O tubal ligation History of ear surgery HX left ear canaloplasty and removal of necrotic bone No pertinent past surgical history Social History Smoking and tobacco/nicotine status: former use of tobacco/nicotine Alcohol intake: never Physical Exam Const: COMMON NORMALS: no acute distress, patient oriented x3, no limitations, alert and well nourished HENMT: COMMON NORMALS: normocephalic and atraumatic HEAD & SCALP: normocephalic and atraumatic Neck/C-Spine: COMMON NORMALS: full ROM, supple and no meningeal signs Resp: COMMON NORMALS: normal respiratory effort and No use of accessory muscles Extremity: COMMON NORMALS: normal to inspection, no joint enlargement and no clubbing, cyanosis or edema NARRATIVE EXTREMITY EXAM: Tenderness to palpation to lateral right knee, there is no obvious swelling or deformity. No bruising. No appreciable joint effusion. Does not participate in range of motion exam secondary to pain. No calf pain or swelling. No distal neurovascular symptoms. No color changing. Negative varus/valgus stress testing. Neuro: COMMON NORMALS: patient oriented x3, moves all extremities, no focal motor deficits and no sensory deficits noted SENSORIUM/ORIENTATION: Yes alert MENINGEAL SIGNS: Yes no meningeal signs Skin: COMMON NORMALS: no rashes or lesions noted GENERAL SKIN EXAM: no rashes or lesions noted Course Vital Signs: Vital signs: Vital Signs Temperature 98.2 F 08/23/24 20:54 Pulse Rate 112 H 08/23/24 21:11 Respiratory Rate 18 08/23/24 20:54 Blood Pressure 115/86 08/23/24 21:11 Pulse Oximetry 95 08/23/24 21:11 Oxygen Delivery Me thod Room Air 08/23/24 21:11 MDM - Extremity (Nontraumatic) Medical Decision Making Patient has history of medial meniscus repair to the right knee, reporting pain to the lateral side. X-ray was negative. Referred to orthopedics for further evaluation as she may require an MRI. Informed her to start taking ibuprofen and do RICE therapy. Crutches provided for comfort, return precautions given. Patient comfortable with discharge plan at this time. Lab Data Radiology Impressions Knee X-Ray 08/23/24 20:42 IMPRESSION: No acute findings. All radiology interpretation(s) finalized by discharge Discharge Plan Discharge Patient Disposition: Home Clinical Impression: Knee pain, right Qualifiers: Chronicity: chronic Qualified Code(s): M25.561 - Pain in right knee Condition: Stable Prescriptions: No Action naproxen sodium [Aleve] 220 mg tablet 220 mg PO BID PRN budesonide-formoterol [Symbicort] 160-4.5 mcg/actuation HFA aerosol inhaler 2 puff inhalation BID nicotine 21-14-7 mg/24 hr patch, TD daily, sequential See Rx Instructions transdermal .COMPLEX Qty: 56 0RF Rx Instructions: apply 1-21 mg NICOTINE PATCH daily for 28 days; follow with 1-14 mg PATCH daily for 14 days, then 1-7mg PATCH daily for 14 days transdermal (DME) Hinged Knee Brace See Rx Instructions .Route .MEDSUPPLY Qty: 1 0RF Rx Instructions: As directed ropinirole 0.25 mg tablet 0.25 mg PO TID urea 40 % cream 1 applic topical DAILY Qty: 28 3RF potassium chloride 20 mEq tablet extended release 20 meq PO QID Qty: 8 0RF potassium chloride 20 mEq tablet extended release 20 meq PO BID Qty: 60 2RF aspirin 81 mg Tablet,Delayed Release (Dr/Ec) 81 mg PO DAILY furosemide 80 mg tablet 80 mg PO BID Depo-Provera 150 mg/mL Syringe 150 mg IM DIRECTED ondansetron 4 mg tablet,disintegrating 4 mg PO Q6H PRN (Reason: nausea and vomiting) Qty: 14 0RF Discharge Orders: Discharge ED (Routine); Ordered 08/23/24 Ordered By: Nick Handy Referrals: Hussein Silverman FNP [Primary Care Provider] - Patient Instructions: Knee Pain (ED) Activity Restrictions/Additional Instructions: Please follow-up with orthopedics. Crutches as needed. Take ibuprofen for pain. Rest, ice, compression, and elevation. Please return with any fevers, or worsening of symptoms. Coding Level of Care Code ED Bead Trimmer for Kim Vieiar
[2024-08-23] MEDS: ketorolac 60 mg/2 mL INJ IM (21:40)
[2024-08-23 21:52] VITALS: BP 123/90; PULSE 110; O2SAT 91
--- NOTE | 2024-08-25 07:15 | DCPLANNER ---
messaged ortho for er f/u
== END 2024-08-23 21:53 | disposition home or self-care (01) ==
PROVIDERS: Emergency Provider Physician Assistant; PCP Nurse Practitioner
DX: M25.561 Pain in right knee (principal); Z79.82 Long term (current) use of aspirin; Z87.891 Personal history of nicotine dependence
CPT/HCPCS: 73562; 96372; 99284; E0114; J1885

== ENCOUNTER 2024-09-06 13:14 | Outpatient (CLI) | payer BC, MEDICAID, SELFPAY ==
--- NOTE | 2024-09-06 13:45 | MR_ITS ---
WS: [id number] MRI RIGHT KNEE NONCONTRAST TECHNIQUE: Axial PD, coronal PD fat sat, coronal PD, sagittal PD, and sagittal PD fat-sat images obtained. CLINICAL INFORMATION: Derangment of right knee COMPARISON: MRI 06/19/2023 FINDINGS: Distal quadriceps and patella tendons are intact. Hypertrophic patella. Normal ACL and PCL. Chronic thinning of the medial meniscus. No acute appearing meniscal tears. Mild peripheral extrusion of the medial meniscus. Moderate joint space narrowing medial joint compartment Moderate chondromalacia patella. Normal medial and lateral collateral ligaments. Normal popliteus. Normal bone marrow signal in the femoral condyles and tibial plateau. Normal fibula head. Medial and lateral patellar retinaculum appear intact. Normal popliteal fossa. No other acute findings. MR/MR knee RT wo con* [id number] IMPRESSION: 1. Normal ACL and PCL. 2. Chronic thinning of the medial meniscus with mild peripheral extrusion. Ko e of this may be due to prior meniscectomy. No acute appearing meniscal tears t sang. Moderate joint space narrowing medial joint compartment. 3. Moderate chondromalacia patella. 4. Medial and lateral collateral ligaments appear intact. 5. No other acute findings or significant change from previous. Outbridge grading: grade II: blister-like swelling/fraying of articular cartila ge extending to surface
== END 2024-09-06 13:15 | disposition home or self-care (01) ==
PROVIDERS: PCP Nurse Practitioner; Visit Provider Physician Assistant
DX: M23.303 Other meniscus derangements, unspecified medial meniscus, right knee (principal); M25.561 Pain in right knee; G89.29 Other chronic pain; Z98.890 Other specified postprocedural states; R93.6 Abnormal findings on diagnostic imaging of limbs; M22.41 Chondromalacia patellae, right knee
CPT/HCPCS: 73721

== ENCOUNTER 2025-01-22 18:31 | Emergency (ER) | payer BC, MEDICAID, SELFPAY ==
[2025-01-22 18:43] VITALS: BP 115/79; PULSE 130; RESP 16; TEMP 36.9; O2SAT 98; BMI 28.3
[2025-01-22 19:10] LABS: Basophils % 0.2 %; Eosinophils # 0.1 10^3/uL (0.0-0.8); Eosinophils % 0.7 %; Hematocrit 39.6 % (36-47); Lymphocytes # 2.7 10^3/uL (0.8-4.8); Lymphocytes % 26.4 %; Mean Corpuscular HGB Conc 34.3 g/dL (30-55); Mean Corpuscular Hemoglobin 32.3 pg (27-33); Mean Corpuscular Volume 94.1 fl (85-98); Mean Platelet Volume 10.6 fL (7.4-10.4); Monocytes # 0.5 10^3/uL (0.2-0.9); Monocytes % 4.9 %; Neutrophils # 6.86 10^3/uL (1.8-7.7); Neutrophils % 67.4 %; Nucleated Red Blood Cells % 0 %; Platelet Count 229 10^3/cmm (157-399); Red Blood Count 4.21 10^6/uL (3.85-5.65); Red Cell Distribution Width 14.6 % (12.1-15.1); White Blood Count 10.18 10^3/uL (3.29-11.43)
--- NOTE | 2025-01-22 19:15 | W.ED.EXTPRO ---
HPI - Extremity Problem General: Chief complaint: Extremity Problem,Nontraumatic Stated complaint: swelling in both arms and legs Time Seen by Provider: 01/22/25 18:41 History of Present Illness: 39-year-old female presents with bilateral lower extremity swelling. She reports has been out of the heat all day today. That her legs are more swollen than normal. She reports that she take 80 mg of Lasix twice daily. She reports that her feet are little bit more tender than normal. Associated symptoms: Deny fever(s) or rash Related Data Home Medications ?Medication ?Instructions ?Recorded ?Confirmed aspirin 81 mg tablet,delayed 81 mg PO DAILY 11/19/22 10/21/24 release furosemide 80 mg tablet 80 mg PO BID 11/19/22 10/21/24 medroxyprogesterone 150 mg/mL 150 mg IM DIRECTED 08/26/23 10/21/24 intramuscular syringe (Depo-Provera) naproxen sodium 220 mg tablet 220 mg PO BID PRN 09/29/23 10/21/24 (Aleve) ropinirole 0.25 mg tablet 0.25 mg PO TID 01/26/24 10/21/24 budesonide-formoterol HFA 160 2 puff inhalation BID 03/30/24 10/21/24 mcg-4.5 mcg/actuation aerosol inhaler (Symbicort) doxycycline hyclate 50 mg capsule 50 mg PO DAILY 09/27/24 10/21/24 albuterol sulfate 2 mg tablet 2 mg PO .Q4 10/21/24 10/21/24 Previous Rx's ?Medication ?Instructions ?Recorded Hinged Knee Brace #1 ea 05/15/23 urea 40 % topical cream 1 applic topical DAILY #28 grams 01/26/24 ondansetron 4 mg disintegrating 4 mg PO Q6H PRN nausea and 02/07/24 tablet vomiting #14 tabs nicotine See Rx Instructions transdermal 03/30/24 21mg/24hr-14mg/24hr-7mg/24hr daily .COMPLEX #56 patches transderm patches,sequentl potassium chloride 20 mEq 20 meq PO BID #60 tabs 07/11/24 tablet,extended release potassium chloride 20 mEq 20 meq PO QID #8 tabs 07/11/24 tablet,extended release Hinged Knee Brace #1 ea 09/27/24 diclofenac sodium 1 % topical gel 4 g topical QID #100 grams 09/27/24 (Voltaren Arthritis Pain) meloxicam 15 mg tablet See Rx Instructions .Route 12/12/24 .COMPLEX #30 tabs metoprolol tartrate 25 mg tablet 25 mg PO BID #60 tabs 12/14/24 Allergies Allergy/AdvReac Type Severity Reaction Status Date / Time tramadol Allergy Severe ALGY-Rash Verified 10/21/24 08:52 diphenhydramine (From Allergy Intermediate ALGY-Anaphy Verified 10/21/24 08:52 Benadryl) laxis Iodine and Iodide Containing Allergy Intermediate ALGY-Anaphy Verified 10/21/24 08:52 Produc laxis amoxicillin Allergy Mild ALGY-Hives Verified 10/21/24 08:52 hydrocodone Allergy Mild ALGY-Hives Verified 10/21/24 08:52 prednisone Allergy ADR-Itching Verified 10/21/24 08:52 Review of Systems Const: Denies: fever(s) or chills Card: Reports: edema and swelling of feet/ankles Resp: Denies: dyspnea or productive cough GI: Denies: abdominal pain, nausea or vomiting : Denies: flank pain or difficulty voiding Skin/Breast: Denies: rash PFSH ED PFSH: Medical History No pertinent family history Surgical History History of laparoscopic cholecystectomy H/O tubal ligation History of ear surgery HX left ear canaloplasty and removal of necrotic bone No pertinent past surgical history Social History Smoking and tobacco/nicotine status: former use of tobacco/nicotine Alcohol intake: never Physical Exam Const: COMMON NORMALS: no acute distress, patient oriented x3 and alert Resp: COMMON NORMALS: normal respiratory effort and clear to auscultation bilaterally AUSCULTATION: clear to auscultation bilaterally Cardio: COMMON NORMALS: regular rhythm RATE: tachycardic RHYTHM: regular rhythm Extremity: NARRATIVE EXTREMITY EXAM: Mild 2+ ankle and foot edema Neuro: COMMON NORMALS: patient oriented x3, CN's II-XII intact bilaterally and moves all extremities SENSORIUM/ORIENTATION: Yes alert Psych: COMMON NORMALS: mental status grossly normal and cooperative Skin: COMMON NORMALS: no rashes or lesions noted and turgor normal GENERAL SKIN EXAM: no rashes or lesions noted and turgor normal Course Vital Signs: Vital signs: Vital Signs Temperature 98.5 F 01/22/25 18:43 Pulse Rate 112 H 01/22/25 19:56 Respiratory Rate 16 01/22/25 18:43 Blood Pressure 114/72 01/22/25 19:56 Pulse Oximetry 95 01/22/25 19:56 Oxygen Delivery Me thod Room Air 01/22/25 19:56 MDM - Extremity (Nontraumatic) Medical Decision Making Patient diagnostics are reviewed. Patient's potassium was low at 2.6. She has a history of issues with potassium and has potassium pills at home. She reports that based on where is that they fluctuate how much she should take she has only been taking 20 mg daily. She reports that sometimes she takes up to 6 pills daily. I did ask her to increase it to 40 mg daily. She has an appointment with her primary care provider in 2 days to be able to follow-up on her potassium. Patient swelling in her feet has already gone down within being elevated. I suspect is likely just some heat edema from being out in the heat today. I recommended she elevate her feet and use some compression stockings. If not improving by Thursday when she sees her primary care provider they can look at adjusting her water pill. Patient was stable and discharged home Lab Data 01/22/25 19:04 01/22/25 19:04 Laboratory Results WBC 10.18 10^3/uL (3.29-11.43) 01/22/25 19:04 RBC 4.21 10^6/uL (3.85-5.65) 01/22/25 19:04 Hgb 13.60 g/dL (11.27-16.99) 01/22/25 19:04 Hct 39.6 % (36-47) 01/22/25 19:04 MCV 94.1 fl (85-98) 01/22/25 19:04 MCH 32.3 pg (27-33) 01/22/25 19:04 MCHC 34.3 g/dL (30-55) 01/22/25 19:04 RDW 14.6 % (12.1-15.1) 01/22/25 19:04 Plt Count 229 10^3/cmm (157-399) 01/22/25 19:04 MPV 10.6 fL (7.4-10.4) H 01/22/25 19:04 Neut % (Auto) 67.4 % 01/22/25 19:04 Lymph % (Auto) 26.4 % 01/22/25 19:04 [place] % (Auto) 4.9 % 01/22/25 19:04 Eos % (Auto) 0.7 % 01/22/25 19:04 Baso % (Auto) 0.2 % 01/22/25 19:04 Neut # (Auto) 6.86 10^3/uL (1.8-7.7) 01/22/25 19:04 Lymph # (Auto) 2.7 10^3/uL (0.8-4.8) 01/22/25 19:04 [place] # (Auto) 0.5 10^3/uL (0.2-0.9) 01/22/25 19:04 Eos # (Auto) 0.1 10^3/uL (0.0-0.8) 01/22/25 19:04 Baso # (Auto) 0.0 10^3/uL (0.0-0.1) 01/22/25 19:04 Nucleated RBC % (auto) 0 % 01/22/25 19:04 Nucleated RBCs # 0.0 /100WBC 01/22/25 19:04 Sodium 136 mmol/L (136-145) 01/22/25 19:04 Potassium 2.6 mmol/L (3.5-5.1) L* 01/22/25 19:04 Chloride 99 mmol/L (98-107) 01/22/25 19:04 Carbon Dioxide 21 mmol/L (22-29) L 01/22/25 19:04 Anion Gap 18.6 (5-19) 01/22/25 19:04 BUN 4 mg/dL (6-20) L 01/22/25 19:04 Creatinine 0.6 mg/dL (0.5-0.9) 01/22/25 19:04 GFR Calculation 110.2 mL/min (90-130) 01/22/25 19:04 Glucose 135 mg/dL (65-115) H 01/22/25 19:04 Calculated Osmolality 281 mOsm/kg (285-295) L 01/22/25 19:04 Calcium 8.9 mg/dL (8.5-10.5) 01/22/25 19:04 Magnesium 2.0 mg/dL (1.7-2.3) 01/22/25 19:04 Total Bilirubin 0.4 mg/dL (0.15-1.2) 01/22/25 19:04 AST 10 U/L (0-32) 01/22/25 19:04 ALT 8 U/L (0-33) 01/22/25 19:04 Alkaline Phosphatase 88 U/L (35-105) 01/22/25 19:04 Total Protein 6.8 g/dL (6.6-8.7) 01/22/25 19:04 Albumin 3.7 g/dL (3.5-5.2) 01/22/25 19:04 Globulin 3.1 g/dL (1.3-4.6) 01/22/25 19:04 No radiology studies performed this visit Discharge Plan Discharge Patient Disposition: Home Clinical Impression: Edema, peripheral, Heat edema Condition: Stable Prescriptions: No Action naproxen sodium [Aleve] 220 mg tablet 220 mg PO BID PRN budesonide-formoterol [Symbicort] 160-4.5 mcg/actuation HFA aerosol inhaler 2 puff inhalation BID nicotine 21-14-7 mg/24 hr patch, TD daily, sequential See Rx Instructions transdermal .COMPLEX Qty: 56 0RF Rx Instructions: apply 1-21 mg NICOTINE PATCH daily for 28 days; follow with 1-14 mg PATCH daily for 14 days, then 1-7mg PATCH daily for 14 days transdermal doxycycline hyclate 50 mg capsule 50 mg PO DAILY Rx Instructions: 10 days diclofenac sodium [Voltaren Arthritis Pain] 1 % gel 4 g topical QID Qty: 100 0RF Rx Instructions: apply to single knee, ankle, foot; for foot includes sole/toes/top of foot (DME) Hinged Knee Brace See Rx Instructions .Route .MEDSUPPLY Qty: 1 0RF Rx Instructions: As directed: Length of Need 99 (DME) Hinged Knee Brace See Rx Instructions .Route .MEDSUPPLY Qty: 1 0RF Rx Instructions: As directed ropinirole 0.25 mg tablet 0.25 mg PO TID urea 40 % cream 1 applic topical DAILY Qty: 28 3RF albuterol sulfate 2 mg tablet 2 mg PO .Q4 potassium chloride 20 mEq tablet extended release 20 meq PO QID Qty: 8 0RF potassium chloride 20 mEq tablet extended release 20 meq PO BID Qty: 60 2RF meloxicam 15 mg tablet See Rx Instructions .ROUTE .COMPLEX Qty: 30 0RF Dose Instruction: Take 1 tablet by mouth once daily Rx Instructions: Take 1 tablet by mouth once daily metoprolol tartrate 25 mg tablet 25 mg PO BID Qty: 60 3RF aspirin 81 mg Tablet,Delayed Release (Dr/Ec) 81 mg PO DAILY furosemide 80 mg tablet 80 mg PO BID Depo-Provera 150 mg/mL Syringe 150 mg IM DIRECTED ondansetron 4 mg tablet,disintegrating 4 mg PO Q6H PRN (Reason: nausea and vomiting) Qty: 14 0RF Discharge Orders: Discharge ED (Routine); Ordered 01/22/25 Ordered By: Aquiles Holland Referrals: Hussein Silverman FNP [Primary Care Provider, Nurse Practitioner] Discharge Diet: Usual diet Discharge Activity: Increase activity as tolerated Patient Instructions: Dependent Edema, Opioid Safety, Pain Management Activity Restrictions/Additional Instructions: Please keep your legs elevated when you are not ambulating. Recommend he also use a compression stockings. Please double your potassium for the next 2 days and keep your appoint with your primary care provider on Thursday. Print Language: Albanian Coding Level of Care Code ED Foundry Equipment Mechanic for Kim Vieira
[2025-01-22 19:28] LABS: Alanine Aminotransferase 8 U/L (0-33); Albumin Level 3.7 g/dL (3.5-5.2); Alkaline Phosphatase 88 U/L (35-105); Anion Gap 18.6 (5-19); Aspartate Amino Transferase 10 U/L (0-32); Blood Urea Nitrogen 4 mg/dL (6-20); Calcium 8.9 mg/dL (8.5-10.5); Carbon Dioxide 21 mmol/L (22-29); Chloride 99 mmol/L (98-107); Globulin 3.1 g/dL (1.3-4.6); Glomerular Filtration Rate 110.2 mL/min (90-130); Glucose 135 mg/dL (65-115); Osmolality Calculated 281 mOsm/kg (285-295); Sodium 136 mmol/L (136-145); Total Bilirubin 0.4 mg/dL (0.15-1.2); Total Protein 6.8 g/dL (6.6-8.7)
[2025-01-22 19:30] LABS: Potassium 2.6 mmol/L (3.5-5.1)
[2025-01-22 19:56] VITALS: BP 114/72; PULSE 112; O2SAT 95
[2025-01-22] MEDS: potassium chloride ER 20 mEq Tablet 40 MEQ PO (19:56)
== END 2025-01-22 20:01 | disposition home or self-care (01) ==
PROVIDERS: Emergency Provider Student in an Organized Health Care Education/Training Program; PCP Nurse Practitioner
DX: T67.7XXA Heat edema, initial encounter (principal); Z79.82 Long term (current) use of aspirin; Z87.891 Personal history of nicotine dependence; X58.XXXA Exposure to other specified factors, initial encounter
CPT/HCPCS: 36415; 80053; 83735; 85025; 99283; J9999

== ENCOUNTER 2025-02-15 23:44 | Emergency (ER) | payer BC, MEDICAID, SELFPAY ==
[2025-02-16 00:06] VITALS: BP 108/73; PULSE 100; RESP 18; TEMP 36.7; O2SAT 96; BMI 31.4
[2025-02-16 03:46] VITALS: BP 109/73; PULSE 91; O2SAT 94
--- NOTE | 2025-02-16 04:38 | W.ED.BACK ---
HPI - Back Pain/Injury General: Chief Complaint: Back Pain/Injury Stated Complaint: L side back Painful getting worse 3days Time Seen by Provider: 02/16/25 04:34 History of Present Illness: 40-year-old female presents emergency room complaining of left-sided lumbar back pain began after she was moving some items around her home. No dysuria urgency or frequency hematuria. No pain radiating to her legs no history of trauma to her back no recent falls or injury. She has tried various [id number] remedies as well as hot baths heating pads etc. Associated symptoms: Deny abdominal pain, chills, dysuria, fever(s) or urinary urgency Related Data Home Medications ?Medication ?Instructions ?Recorded ?Confirmed aspirin 81 mg tablet,delayed 81 mg PO DAILY 11/19/22 10/21/24 release furosemide 80 mg tablet 80 mg PO BID 11/19/22 10/21/24 medroxyprogesterone 150 mg/mL 150 mg IM DIRECTED 08/26/23 10/21/24 intramuscular syringe (Depo-Provera) naproxen sodium 220 mg tablet 220 mg PO BID PRN 09/29/23 10/21/24 (Aleve) ropinirole 0.25 mg tablet 0.25 mg PO TID 01/26/24 10/21/24 budesonide-formoterol HFA 160 2 puff inhalation BID 03/30/24 10/21/24 mcg-4.5 mcg/actuation aerosol inhaler (Symbicort) doxycycline hyclate 50 mg capsule 50 mg PO DAILY 09/27/24 10/21/24 albuterol sulfate 2 mg tablet 2 mg PO .Q4 10/21/24 10/21/24 Previous Rx's ?Medication ?Instructions ?Recorded Hinged Knee Brace #1 ea 05/15/23 urea 40 % topical cream 1 applic topical DAILY #28 grams 01/26/24 ondansetron 4 mg disintegrating 4 mg PO Q6H PRN nausea and 02/07/24 tablet vomiting #14 tabs nicotine See Rx Instructions transdermal 03/30/24 21mg/24hr-14mg/24hr-7mg/24hr daily .COMPLEX #56 patches transderm patches,sequentl potassium chloride 20 mEq 20 meq PO BID #60 tabs 07/11/24 tablet,extended release potassium chloride 20 mEq 20 meq PO QID #8 tabs 07/11/24 tablet,extended release Hinged Knee Brace #1 ea 09/27/24 diclofenac sodium 1 % topical gel 4 g topical QID #100 grams 09/27/24 (Voltaren Arthritis Pain) meloxicam 15 mg tablet See Rx Instructions .Route 12/12/24 .COMPLEX #30 tabs metoprolol tartrate 25 mg tablet 25 mg PO BID #60 tabs 12/14/24 diclofenac sodium 75 mg 75 mg PO Q12H PRN pain #20 tabs 02/16/25 tablet,delayed release tizanidine 4 mg tablet 4 mg PO Q6H PRN muscle spasticity 02/16/25 #20 tabs Allergies Allergy/AdvReac Type Severity Reaction Status Date / Time tramadol Allergy Severe ALGY-Rash Verified 02/16/25 00:10 diphenhydramine (From Allergy Intermediate ALGY-Anaphy Verified 02/16/25 00:10 Benadryl) laxis Iodine and Iodide Containing Allergy Intermediate ALGY-Anaphy Verified 02/16/25 00:10 Produc laxis amoxicillin Allergy Mild ALGY-Hives Verified 02/16/25 00:10 hydrocodone Allergy Mild ALGY-Hives Verified 02/16/25 00:10 prednisone Allergy ADR-Itching Verified 02/16/25 00:10 Review of Systems Const: Denies: fever(s) or chills Card: Denies: chest pain Resp: Denies: dyspnea GI: Denies: abdominal pain : Denies: dysuria, urinary frequency or urinary urgency Musc: Reports: back pain; Denies: neck pain Skin/Breast: Denies: rash PFSH ED PFSH: Medical History No pertinent family history Surgical History History of laparoscopic cholecystectomy H/O tubal ligation History of ear surgery HX left ear canaloplasty and removal of necrotic bone No pertinent past surgical history Social History Smoking and tobacco/nicotine status: former use of tobacco/nicotine Alcohol intake: never Physical Exam Const: GENERAL APPEARANCE: cooperative ORIENTATION/CONSCIOUSNESS: Yes awake, Yes oriented to person, Yes oriented to place and Yes oriented to time HENMT: COMMON NORMALS: normocephalic, atraumatic and hearing grossly normal bilaterally HEAD & SCALP: normocephalic and atraumatic Resp: COMMON NORMALS: normal respiratory effort, No retractions, No use of accessory muscles and clear to auscultation bilaterally AUSCULTATION: clear to auscultation bilaterally Cardio: COMMON NORMALS: regular rate, regular rhythm and No murmurs present (Cardio) RATE: regular rate RHYTHM: regular rhythm GI: COMMON NORMALS: Soft to palpation and No hepatosplenomegaly present AUSCULTATION: Yes normoactive bowel sounds PALPATION: Yes Soft to palpation, No Tenderness to palpation present (GI), No Guarding due to palpation present (GI) and Yes No hepatosplenomegaly present Extremity: COMMON NORMALS: normal to inspection, capillary refill normal, no clubbing, cyanosis or edema, no calf tenderness and no pedal edema Neuro: SENSORIUM/ORIENTATION: Yes oriented to person, Yes oriented to place and Yes oriented to time Skin: COMMON NORMALS: no rashes or lesions noted GENERAL SKIN EXAM: no rashes or lesions noted Course Vital Signs: Vital signs: Vital Signs Temperature 98.1 F 02/16/25 00:06 Pulse Rate 98 02/16/25 06:08 Respiratory Rate 17 02/16/25 06:08 Blood Pressure 112/75 02/16/25 06:08 Pulse Oximetry 92 02/16/25 06:08 Oxygen Delivery Me thod Room Air 02/16/25 03:46 MDM - Back Pain/Injury Medical Decision Making UA negative. Musculoskeletal low back pain. Discharge patient home with diclofenac and tizanidine. Follow-up with primary care if not improving may need referral for PT. Labs Laboratory Results Urine Color Yellow (Yellow) 02/16/25 03:30 Urine Appearance Clear (CLEAR) 02/16/25 03:30 Urine pH 6.0 (5-7) 02/16/25 03:30 Ur Specific [place] 1.015 (1.005-1.030) 02/16/25 03:30 Urine Protein Negative (Negative) 02/16/25 03:30 Urine Glucose (UA) Negative (Normal) 02/16/25 03:30 Urine Ketones Negative (Negative) 02/16/25 03:30 Urine Blood Negative (Negative) 02/16/25 03:30 Urine Nitrate Negative (Negative) 02/16/25 03:30 Urine Bilirubin Negative (Negative) 02/16/25 03:30 Urine Urobilinogen 1.0 mg/dL (Negative) 02/16/25 03:30 Ur Leukocyte Esterase Negative (Negative) 02/16/25 03:30 Urine RBC 0-2 /hpf (0-2) 02/16/25 03:30 Urine WBC 0-5 /hpf (0-5) 02/16/25 03:30 Ur Squamous Epith Cells 0-5 /hpf (0-5) 02/16/25 03:30 Amorphous Sediment Not Reportable 02/16/25 03:30 Urine Bacteria None seen /hpf (NONE) 02/16/25 03:30 Hyaline Casts 0-4 /lpf H 02/16/25 03:30 No radiology studies performed this visit Discharge Plan Discharge Patient Disposition: Home Clinical Impression: Low back pain Condition: Stable Prescriptions: New tizanidine 4 mg tablet 4 mg PO Q6H PRN (Reason: muscle spasticity) Qty: 20 0RF Rx Instructions: do not exceed 3 doses per 24 hrs diclofenac sodium 75 mg tablet,delayed release (DR/EC) 75 mg PO Q12H PRN (Reason: pain) Qty: 20 0RF Held diclofenac sodium [Voltaren Arthritis Pain] 1 % gel 4 g topical QID Qty: 100 0RF Rx Instructions: apply to single knee, ankle, foot; for foot includes sole/toes/top of foot meloxicam 15 mg tablet See Rx Instructions .ROUTE .COMPLEX Qty: 30 0RF Dose Instruction: Take 1 tablet by mouth once daily Rx Instructions: Take 1 tablet by mouth once daily No Action naproxen sodium [Aleve] 220 mg tablet 220 mg PO BID PRN budesonide-formoterol [Symbicort] 160-4.5 mcg/actuation HFA aerosol inhaler 2 puff inhalation BID nicotine 21-14-7 mg/24 hr patch, TD daily, sequential See Rx Instructions transdermal .COMPLEX Qty: 56 0RF Rx Instructions: apply 1-21 mg NICOTINE PATCH daily for 28 days; follow with 1-14 mg PATCH daily for 14 days, then 1-7mg PATCH daily for 14 days transdermal doxycycline hyclate 50 mg capsule 50 mg PO DAILY Rx Instructions: 10 days (DME) Hinged Knee Brace See Rx Instructions .Route .MEDSUPPLY Qty: 1 0RF Rx Instructions: As directed: Length of Need 99 (DME) Hinged Knee Brace See Rx Instructions .Route .MEDSUPPLY Qty: 1 0RF Rx Instructions: As directed ropinirole 0.25 mg tablet 0.25 mg PO TID urea 40 % cream 1 applic topical DAILY Qty: 28 3RF albuterol sulfate 2 mg tablet 2 mg PO .Q4 potassium chloride 20 mEq tablet extended release 20 meq PO QID Qty: 8 0RF potassium chloride 20 mEq tablet extended release 20 meq PO BID Qty: 60 2RF metoprolol tartrate 25 mg tablet 25 mg PO BID Qty: 60 3RF aspirin 81 mg Tablet,Delayed Release (Dr/Ec) 81 mg PO DAILY furosemide 80 mg tablet 80 mg PO BID Depo-Provera 150 mg/mL Syringe 150 mg IM DIRECTED ondansetron 4 mg tablet,disintegrating 4 mg PO Q6H PRN (Reason: nausea and vomiting) Qty: 14 0RF Discharge Orders: Discharge ED (Routine); Ordered 02/16/25 Ordered By: Alfonso Amin Referrals: Hussein Silverman FNP [Primary Care Provider, Nurse Practitioner] Patient Instructions: Opioid Safety, Pain Management, Patient Portal & Ramón Instructions Activity Restrictions/Additional Instructions: Thank you for choosing [facility] for your healthcare needs today. It is very important that you follow up as instructed or that you return to the Emergency Department should you have concerns or if your condition changes or worsens in any way. You were seen emergency room with complaint of musculoskeletal low back pain. Discharged home with anti-inflammatories and muscle relaxers. Recommend you follow-up with your primary care doctor. Print Language: Albanian Coding Level of Care Code ED Assembler [employer] for Kim Vieira
[2025-02-16] MEDS: orphenadrine 30 mg/mL Inj 2 mL 60 MG IM (04:57)
[2025-02-16 05:00] VITALS: BP 119/82; PULSE 91; RESP 17; O2SAT 90
[2025-02-16 05:52] LABS: Glucose Urine UA Negative (Normal); Nitrate Urine Negative (Negative); Specific Gravity, Urine 1.015 (1.005-1.030)
[2025-02-16 05:56] LABS: Add Urine Microscopic? YES
[2025-02-16 06:08] VITALS: BP 112/75; PULSE 98; RESP 17; O2SAT 92
== END 2025-02-16 06:09 | disposition home or self-care (01) ==
PROVIDERS: Emergency Provider Family Medicine; PCP Nurse Practitioner
DX: M54.50 Low back pain, unspecified (principal); Z79.899 Other long term (current) drug therapy; Z79.82 Long term (current) use of aspirin; Z88.5 Allergy status to narcotic agent; Z88.8 Allergy status to other drugs, medicaments and biological substances; Z91.041 Radiographic dye allergy status; Z87.891 Personal history of nicotine dependence
CPT/HCPCS: 36415; 81001; 96372; 96374; 99284; J1885; J2360

== ENCOUNTER → 2025-03-02 13:53 | Outpatient (BNVA) | payer BC, MEDICAID, SELFPAY | PROVIDERS: PCP Nurse Practitioner; Visit Provider Internal Medicine Cardiovascular Disease | DX: R07.9 Chest pain, unspecified (principal) | CPT/HCPCS: 93005 ==

== ENCOUNTER 2025-07-18 12:05 | Emergency (ER) | payer BC, MEDICAID, SELFPAY ==
[2025-07-18 12:08] VITALS: BP 112/67; PULSE 119; RESP 17; O2SAT 95; BMI 31.1
--- NOTE | 2025-07-18 12:23 | XRR_ITS ---
PROCEDURE INFORMATION: Exam: XR Right Foot Exam date and time: 07/18/2025 12:23 PM Age: 40 years old Clinical indication: Injury or trauma; Fall; Blunt trauma; Foot; Right TECHNIQUE: Imaging protocol: Radiologic exam of the right foot. Views: 3 or more views. COMPARISON: [place] [id number] 01/17/2023 2:06 AM FINDINGS: Bones/joints: Normal. Mild interphalangeal articular surface narrowing and spurring. Achilles calcaneal spurring. No acute osseous or joint abnormality. Soft tissues: Normal. XR/XR foot RT min 3V* [id number] IMPRESSION: No acute findings.
--- NOTE | 2025-07-18 12:23 | XRR_ITS ---
PROCEDURE INFORMATION: Exam: XR Left Knee Exam date and time: 07/18/2025 12:23 PM Age: 40 years old Clinical indication: Injury or trauma; Fall; Blunt trauma; Knee; Left TECHNIQUE: Imaging protocol: Radiologic exam of the left knee. Views: 3 views. COMPARISON: No relevant prior studies available. FINDINGS: Bones/joints: Normal. No fracture or dislocation. No arthritic changes. Soft tissues: Normal. XR/XR knee LT 3V* [id number] IMPRESSION: No acute findings.
--- NOTE | 2025-07-18 12:25 | W.ED.EXTPRO ---
HPI - Extremity Problem General: Chief complaint: Extremity Injury, Lower Stated complaint: bilat leg pain, swelling Time Seen by Provider: 07/18/25 12:21 Source: patient Mode of arrival: ambulatory Limitations: no limitations History of Present Illness: 40-year-old female states she has had chronic pain in her legs is trying to get into a pain specialist. States she had a fell roughly 5 days ago states she had injured her right foot and left knee and is been having increased pain since then. She has been ambulatory denies any other injuries rates her pain a 7 out of 10 currently Related Data Home Medications ?Medication ?Instructions ?Recorded ?Confirmed aspirin 81 mg tablet,delayed 81 mg PO DAILY 11/19/22 04/19/25 release medroxyprogesterone 150 mg/mL 150 mg IM DIRECTED 08/26/23 04/19/25 intramuscular syringe (Depo-Provera) naproxen sodium 220 mg tablet 220 mg PO BID PRN 09/29/23 04/19/25 (Aleve) albuterol sulfate 2.5 mg/3 mL 2.5 mg inhalation Q4H PRN 03/02/25 04/19/25 (0.083 %) solution for nebulization alpha lipoic acid 600 mg capsule 600 mg PO DAILY 03/02/25 04/19/25 budesonide-formoterol HFA 160 2 puff inhalation BID PRN 03/02/25 04/19/25 mcg-4.5 mcg/actuation aerosol inhaler (Symbicort) furosemide 80 mg tablet 80 mg PO DIRECTED 03/02/25 04/19/25 omeprazole 40 mg capsule,delayed 40 mg PO DAILY 03/02/25 04/19/25 release oxygen-air delivery systems 03/02/25 04/19/25 ropinirole 0.25 mg tablet 1 mg PO BID 03/02/25 04/19/25 spironolactone 25 mg tablet 25 mg PO DAILY 03/02/25 04/19/25 urea 40 % topical cream 1 applic topical DAILY PRN 03/02/25 04/19/25 Previous Rx's ?Medication ?Instructions ?Recorded Hinged Knee Brace #1 ea 05/15/23 Hinged Knee Brace #1 ea 09/27/24 diclofenac sodium 75 mg 75 mg PO Q12H PRN pain #20 tabs 02/16/25 tablet,delayed release tizanidine 4 mg tablet 4 mg PO Q6H PRN muscle spasticity 02/16/25 #20 tabs metoprolol tartrate 25 mg tablet 25 mg PO BID #60 tabs 04/04/25 potassium chloride 20 mEq See Rx Instructions .Route 04/04/25 tablet,extended release .COMPLEX #60 tabs Allergies Allergy/AdvReac Type Severity Reaction Status Date / Time tramadol Allergy Severe ALGY-Rash Verified 07/18/25 12:18 diphenhydramine (From Allergy Intermediate ALGY-Anaphy Verified 07/18/25 12:18 Benadryl) laxis Iodine and Iodide Containing Allergy Intermediate ALGY-Anaphy Verified 07/18/25 12:18 Produc laxis amoxicillin Allergy Mild ALGY-Hives Verified 07/18/25 12:18 hydrocodone Allergy Mild ALGY-Hives Verified 07/18/25 12:18 prednisone Allergy ADR-Itching Verified 07/18/25 12:18 Review of Systems Musc: Reports: extremity pain PFSH ED PFSH: Medical History No pertinent family history Surgical History History of laparoscopic cholecystectomy H/O tubal ligation History of ear surgery HX left ear canaloplasty and removal of necrotic bone No pertinent past surgical history Social History Smoking and tobacco/nicotine status: former use of tobacco/nicotine Alcohol intake: never Physical Exam Const: COMMON NORMALS: no acute distress, patient oriented x3 and healthy appearing HENMT: COMMON NORMALS: normocephalic and atraumatic HEAD & SCALP: normocephalic and atraumatic Neck/C-Spine: COMMON NORMALS: full ROM and supple Chest: COMMONS NORMALS: normal inspection of the chest Resp: COMMON NORMALS: normal respiratory effort Cardio: COMMON NORMALS: regular rate RATE: regular rate Extremity: NARRATIVE EXTREMITY EXAM: Slight tenderness to right foot left knee no obvious deformity distal pulses sensation intact no redness Neuro: COMMON NORMALS: patient oriented x3, moves all extremities and no focal motor deficits Psych: COMMON NORMALS: mental status grossly normal, Normal thought process present and cooperative THOUGHT PROCESS: Normal thought process present Skin: COMMON NORMALS: no rashes or lesions noted and no wounds GENERAL SKIN EXAM: no rashes or lesions noted Course Vital Signs: Vital signs: Vital Signs Pulse Rate 119 H 07/18/25 12:08 Respiratory Rate 17 07/18/25 12:08 Blood Pressure 112/67 07/18/25 12:08 Pulse Oximetry 95 07/18/25 12:08 Oxygen Delivery Me thod Room Air 07/18/25 12:08 MDM - Extremity (Nontraumatic) Medical Decision Making Patient presents here with bilateral leg pain differential includes DVT, ischemic limb, fracture. Her exam here shows no signs of DVT she has distal pulses palpable as well with no signs of limb ischemia. She did have a fall and had some right foot pain left knee pain I reviewed both x-rays and showed no signs of fracture. Did give her morphine here her pain has improved she stable for discharge follow-up with PCP and return if worsening Medical Records I reviewed the patient's medical records. Lab Data Radiology Impressions Foot X-Ray 07/18/25 12:23 IMPRESSION: No acute findings. Knee X-Ray 07/18/25 12:23 IMPRESSION: No acute findings. All radiology interpretation(s) finalized by discharge Discharge Plan Discharge Patient Disposition: Home Clinical Impression: Bilateral leg pain Condition: Stable Prescriptions: No Action naproxen sodium [Aleve] 220 mg tablet 220 mg PO BID PRN budesonide-formoterol [Symbicort] 160-4.5 mcg/actuation HFA aerosol inhaler 2 puff inhalation BID PRN (DME) Hinged Knee Brace See Rx Instructions .Route .MEDSUPPLY Qty: 1 0RF Rx Instructions: As directed: Length of Need 99 omeprazole 40 mg capsule,delayed release(DR/EC) 40 mg PO DAILY spironolactone 25 mg tablet 25 mg PO DAILY albuterol sulfate 2.5 mg /3 mL (0.083 %) solution for nebulization 2.5 mg inhalation Q4H PRN urea 40 % cream 1 applic topical DAILY PRN (DME) oxygen-air delivery systems Device See Rx Instructions .Route Rx Instructions: As directed alpha lipoic acid 600 mg capsule 600 mg PO DAILY (DME) Hinged Knee Brace See Rx Instructions .Route .MEDSUPPLY Qty: 1 0RF Rx Instructions: As directed ropinirole 0.25 mg tablet 1 mg PO BID potassium chloride 20 mEq tablet extended release See Rx Instructions .ROUTE .COMPLEX Qty: 60 0RF Dose Instruction: Take 1 tablet by mouth twice daily Rx Instructions: Take 1 tablet by mouth twice daily metoprolol tartrate 25 mg tablet 25 mg PO BID Qty: 60 3RF aspirin 81 mg Tablet,Delayed Release (Dr/Ec) 81 mg PO DAILY furosemide 80 mg tablet 80 mg PO DIRECTED Rx Instructions: take 160 mg in the AM and 80 mg at noon Depo-Provera 150 mg/mL Syringe 150 mg IM DIRECTED tizanidine 4 mg tablet 4 mg PO Q6H PRN (Reason: muscle spasticity) Qty: 20 0RF Rx Instructions: do not exceed 3 doses per 24 hrs diclofenac sodium 75 mg tablet,delayed release (DR/EC) 75 mg PO Q12H PRN (Reason: pain) Qty: 20 0RF Discharge Orders: Discharge ED (Routine); Ordered 07/18/25 Ordered By: Meenakshi Syed Referrals: Hussein Silverman, AIR SEALING TECHNICIAN [Primary Care Provider, Nurse Practitioner] - 4-7 days Discharge Diet: Advance as tolerated Discharge Activity: Resume usual activity Patient Instructions: Leg Pain (ED) Print Language: Yakut Coding Level of Care Code ED Train Operations Supervisor for Kim Vieira
[2025-07-18] MEDS: morphine 4 mg/mL SDV 1 mL IM (12:36)
== END 2025-07-18 13:16 | disposition home or self-care (01) ==
PROVIDERS: Emergency Provider Emergency Medicine; PCP Nurse Practitioner
DX: M79.604 Pain in right leg (principal); M79.605 Pain in left leg
CPT/HCPCS: 73562; 73630; 96372; 99284; J2270

== ENCOUNTER 2025-08-02 10:14 | Outpatient (CLI) | payer BC, MEDICAID, SELFPAY ==
--- NOTE | 2025-08-02 10:17 | MM_ITS ---
WS: [id number] Bilateral diagnostic 3D tomosynthesis digital mammogram, 08/02/2025 Clinical Data: UNSPECIFIED LUMP RIGHT BREAST, N63.10 Comparison: None. Findings: The breasts show scattered fibro glandular tissue. No spiculated masses or clustered calcifications are seen. There are no cysts or masses. There are no secondary signs of carcinoma. MM/MM diag BI tomosynthesis [id number] Impression: 1. Negative bilateral mammograms. 2. Recommend right breast ultrasound. BIRADS: 2 - Benign. FOLLOW UP: See Report The CAD fitting room checker was used
--- NOTE | 2025-08-02 10:17 | US_ITS ---
WS: [id number] Right breast ultrasound, 08/02/2025 Clinical Data: UNSPECIFIED LUMP RIGHT BREAST, N63.10 Comparison: Mammogram, 08/02/2025 Findings: Imaging of the right breast at the 3 o'clock position showed only normal breast tissue. No cysts or masses were seen. US/US breast RT limited* [id number] Impression: 1. Normal right breast ultrasound. 2. Recommend annual screening mammograms. BIRADS: 2 - Benign. FOLLOW UP: See Report
== END 2025-08-02 10:15 | disposition home or self-care (01) ==
LOC: RAD 10:15
PROVIDERS: PCP Nurse Practitioner; Visit Provider Nurse Practitioner
DX: N63.10 Unspecified lump in the right breast, unspecified quadrant (principal); R92.323 Mammographic fibroglandular density, bilateral breasts
CPT/HCPCS: 76642; 77062; G0279